=== PATIENT | male | born 1970 | race Caucasian/White ===

== ENCOUNTER 2016-07-17 07:21 | Emergency (ER) | payer MEDICAID ==
[2016-07-17 07:39] VITALS: BP 169/97
--- NOTE | 2016-07-17 08:08 | ED Physician Chart ---
Chief Complaint/HPI - Patient Information Date Seen:: 07/17/16 Time Seen:: 07:56 Chief Complaint:: NAUSEA, VOMITING AND EPIGASTIC PAIN X 3 DAYS History of Present Illness:: THIS 46 YEAR OLD MALE PRESENTS WITH A 3 DAY HISTORY OF NAUSEA AND EPIGASTRIC PAIN ASSOCIATED WITH HEAVY MARIJUANA USE. PT HAS HAD >100 SIMILAR EPISODES OVER THE PAST 6 YEARS. NO HEMATEMESIS OR MELANA. PT RATES THE ABD PAIN 9/ 10. THE QUALITY IS BURNING. HOT SHOWERS HELP RELIEVE THE SYMPTOMS. THE PAIN DOSE NOT RADIATE TO THE BACK. PT IS HEP C POSITIVE DOES NOT HAVE HEP B OR HIV. Allergies:: Allergies Allergy/AdvReac Type Severity Reaction Status Date / Time clindamycin Allergy Verified 02/29/16 15:51 metoclopramide HCl Allergy Verified 02/29/16 15:51 [From Reglan] Penicillins [PCN] Allergy Verified 02/29/16 15:51 prochlorperazine Allergy Verified 02/29/16 15:51 [From Compazine] prochlorperazine edisylate Allergy Verified 02/29/16 15:51 [From Compazine] prochlorperazine maleate Allergy Verified 02/29/16 15:51 [From Compazine] Vitals:: Vital Signs - 8 hr 07/17/16 07/17/16 07:38 07:39 Temp 97.6 F HR 66 RR 15 BP 169/97 169/97 O2 Sat % 99 Review of Systems - Review of Systems General/Constitutional: No fever, No chills, Weakness, No diaphoresis, Loss of appetite Skin: No skin lesions, No rash, No bruising Head: No headache, Light headed Eyes: No loss of vision, No pain, No diplopia ENT: No earache, No sore throat, No tinnitus Neck: No neck pain, No swelling, No stiffness, No mass noted Cardio Vascular: No chest pain, No palpitations, No edema Pulmonary: No SOB, No cough, No wheezing GI: Nausea, No vomiting, No diarrhea, Pain, No hematemesis G/U: No dysuria, No frequency, No hematuria Musculoskeletal: No bone or joint pain, No back pain, No muscle pain Endocrine: No polyuria, No polydipsia Psychiatric: No prior psych history, No suicidal ideation Hematopoietic: No bruising, No lymphadenopathy Allergic/Immuno: No urticaria, No angioedema Neurological: No syncope, No focal symptoms, Weakness, No paresthesia, No headache, No seizure, No confusion Past Medical History - Past Medical History Past Medical History: Other (POSITIVE FOR HEP C) Social History: Non Smoker, No Alcohol, Illicit Drug Use, Single Surgical History: Pacemaker (PACEMAKER IS IN THE RT LATERAL CHEST.), other ( OPEN HEART SURGERY.) Psychiatricy History: None Family Medical History - Family Member Mother History Unknown: Yes Ethnicity: Living Status: Still Living Hx Family Hypertension: Yes Hx Family Diabetes: Yes Other Medical History: hep C Physical Exam - Physical Examination General/Constitutional: Well-developed, well-nourished, Alert, GCS 15, Ambulatory Other Gen/Cons comments:: IN SEVERE DISTRESS FROM HIS COMPLAINED OF SYMPTOMS. Head: Atraumatic Eyes: Lids, conjuctiva normal, PERRL (SCLERA ANICTERIC), EOMI Skin: No rash, No skin lesions, No ecchymosis, No lymphadenopathy ENMT: External ears, nose nl, Nasal exam nl, Lips, teeth, gums nl, Oropharynx nl , Tonsils nl Neck: Nontender, Full ROM w/o pain, No JVD, No nuchal rigidity, No mass Respiratory: Nl effort/Exclusion, Clear to Auscultation, No Wheeze/Rhonchi/Rales Other Respiratory comments:: PACEMAKER IS IN THE RT LATERAL CHEST. Cardio Vascular: No murmur, gallop, rubs, NL S1 S2 (), Carotid/Femoral/Distal pulses equal bilaterally (TACHYCARDIA IN THE 110 RANGE AT THE TIME OF THIS EXAM. ) Other Cardio Vascular comments:: ADEQUATE PULSES IN ALL 4 EXTREMITIES Other GI comments:: ABD SOFT WITH MODERATE EPIGASTRIC TENDERNESS. NO REBOUND OR GUARDING. DECREASED BOWEL SOUNDS. NO HERNIAS. : No CVA tenderness, NL external genitalia Extremities: No tenderness or effusion, Full ROM, normal strength in all extremities, No edema Neuro/Psych: Alert/oriented, Normal sensory exam, Normal motor strength, Mood normal, Normal gait, No focal deficits Misc: Normal back, No paraspinal tenderness Labs/Radiology/EKG Results - Lab Results Results: Laboratory Tests 07/17/16 07/17/16 07/17/16 08:27 08:27 08:27 WBC 11.8 H RBC 5.81 H Hgb 17.1 Hct 50.4 H MCV 86.8 MCH 29.4 MCHC Differential 33.8 RDW 13.1 Plt Count 81 L MPV 9.6 Neutrophils % 68.2 Lymphocytes % 24.3 Monocytes % 5.4 Eosinophils % 2.1 Basophils % 0.0 Sodium 132 L Potassium 3.7 Chloride 99 Carbon Dioxide 27.0 Anion Gap 9.7 BUN 17 Creatinine 1.0 Est GFR ( Amer) > 60.0 Est GFR (Non-Af Amer) > 60.0 BUN/Creatinine Ratio 17.0 Glucose 97 Calcium 10.1 Total Bilirubin 1.0 AST 24 ALT 14 Alkaline Phosphatase 99 Total Protein 7.9 Albumin 4.6 Globulin 3.3 Albumin/Globulin Ratio 1.4 Amylase 43 Lipase 33 LAB INTERPRETATION: the CBC shows a mild elevation of the white count which is consistent with the patient's retching and vomiting. The hemoglobin level is a little bit high which goes along with hemoconcentration from dehydration. All the electrolytes are within the normal parameters except for the sodium which is 132 and of no clinical significance. Liver function tests and pancreatic enzymes were both within normal range. Assessment - Assessment General Assessment: 09 HRS: WAS FEELING MUCH BETTER BUT BOTH PAIN AND NAUSEA RETURNING. WILL ORDER ADDITIONAL MS AND ZOFRAN. CASE SUMMARY: this 46-year-old male presents with a three day history of almost continuous vomiting and epigastric pain. Patient uses marijuana in large amounts and has had similar symptoms close to 100 times over the past six years. On physical examination he has mild tenderness in the epigastric region with no associated rebound or guarding. The liver is not palpable. The patient' s symptoms of dehydration, vomiting and abdominal pain progressed with IV Zofran , IV morphine and 3 L of by the normal saline. At the time of discharge the patient was no longer nauseated and had stopped vomiting. His pain was rated at a 2/10 severity. He was advised to stop smoking marijuana and to seek help our rehab facility. He was further advised to return to the emergency department if his symptoms returned or worsened. Discharged with a prescription for Zofran 8 mg dissolvable discs. Discharged in stable condition. MDM DDX EPIGASTRIC AND VOMITING: NOT HEMORRHAGIC GASTRITIS DUE TO NO HEMATEMESIS or MELENA. NOT Pancreatitis based on normal lipase and amylase levels. NOT Gastroparesis since the patient does not have diabetes or hyperglycemia. ED Septic Shock - . 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 History of hepatitis C. - Patient Disposition Discharge/Transfer:: Home ED Discharge Plan - Patient Disposition Admit/Discharge/Transfer: PT DISCHARGED HOME Condition at Disposition: Stable Prescriptions: Ondansetron HCl [Zofran] 8 mg PO Q6H PRN #0 solution PRN Reason: Nausea Instructions: Cyclic Vomiting Syndrome Accepting Physician: Phillip Doran [Other] - 1-3 Days
[2016-07-17] MEDS ORDERED: Sodium Chloride 0.9% 1,000 ML IV ONE ×2 (08:15→08:17)
[2016-07-17] MEDS ORDERED: Morphine Sulfate 4 mg/mL 1mL Syr IVP ONE ×2 (08:17→09:06)
[2016-07-17 08:38] LABS: % EOSINOPHILS 2.1 % (0.0-5.0); % LYMPHOCYTES 24.3 % (20.0-50.0); % MONOCYTES 5.4 % (2.0-10.0); % NEUTROPHILS 68.2 % (40.0-80.0); HEMATOCRIT 50.4 % (39.0-49.0); HEMOGLOBIN 17.1 gm/dL (13.2-17.3); MEAN CELL VOLUME 86.8 fl (80-99); MEAN CORPUSCULAR HEMOGLOBIN 29.4 pg (26.0-30.0); MEAN CORPUSCULAR HGB CONC 33.8 pg (28.0-36.0); MEAN PLATELET VOLUME 9.6 fl; NEUTROPHILE ABSOLUTE 8.1 Th/cmm (1.8-8.0); PLATELET COUNT 81 Th/cmm (150-400); RED BLOOD COUNT 5.81 Mil/cmm (4.30-5.70); RED CELL DISTRIBUTION WIDTH 13.1 % (11.5-20.0); WHITE BLOOD COUNT 11.8 Th/cmm (4.8-10.8)
[2016-07-17 08:53] LABS: ALB/GLOB RATIO 1.4 (1.0-1.8); ALKALINE PHOSPHATASE 99 U/L (34-104); AMYLASE SERUM 43 U/L (29-103); ANION GAP 9.7 (7.0-16.0); BUN - UREA NITROGEN 17 mg/dL (7-25); CALCIUM SERUM 10.1 mg/dL (8.6-10.3); CHLORIDE 99 mEq/L (98-107); GLUCOSE 97 mg/dL (70-105); LIPASE 33 U/L (11-82); POTASSIUM SERUM 3.7 mEq/L (3.5-5.1); SGOT 24 U/L (13-39); SGPT/ALT 14 U/L (7-52); SODIUM SERUM 132 mEq/L (136-145)
== END 2016-07-17 11:35 | disposition home or self-care (01) ==
LOC: ER 07:21
DX: F12.90 Cannabis use, unspecified, uncomplicated (principal); Z86.19 Personal history of other infectious and parasitic diseases; Z88.1 Allergy status to other antibiotic agents; Z88.0 Allergy status to penicillin; Z88.8 Allergy status to other drugs, medicaments and biological substances
CPT/HCPCS: 99284; 96374; 96375; 96376; 36415; 85025; 82150; 83690; 80053; J2405 ×2; J2270; J7030; Z7502

== ENCOUNTER 2016-07-28 21:00 | Emergency (ER) | payer MEDICAID ==
--- NOTE | 2016-07-28 21:57 | ED Physician Chart ---
Chief Complaint/HPI - Patient Information Date Seen:: 07/28/16 Time Seen:: 21:53 Chief Complaint:: vomiting History of Present Illness:: pt well known to this ed for similar episodes frequently...these are thought to be a cyclical vomiting syndrome possibly related to heavy marijuanna use. pt says he was fine today until he ate a Big Mac which flared up his usual attack of pain and vomiting (non bloody). no fever. pt says the pain is crampy all over and similar to prior episodes. he is sweaty. no other recent illness nor injury. Allergies:: Allergies Allergy/AdvReac Type Severity Reaction Status Date / Time clindamycin Allergy Verified 07/28/16 21:39 metoclopramide HCl Allergy Verified 07/28/16 21:39 [From Reglan] Penicillins [PCN] Allergy Verified 07/28/16 21:39 prochlorperazine Allergy Verified 07/28/16 21:39 [From Compazine] prochlorperazine edisylate Allergy Verified 07/28/16 21:39 [From Compazine] prochlorperazine maleate Allergy Verified 07/28/16 21:39 [From Compazine] Vitals:: Vital Signs - 8 hr 07/28/16 21:15 Temp 98.7 F HR 76 RR 20 BP 175/100 O2 Sat % 99 Historian:: Patient Review of Systems - Review of Systems General/Constitutional: No fever, No chills, No weight loss, No weakness, No diaphoresis, No edema, No loss of appetite Skin: No skin lesions, No rash, No bruising Head: No headache, No light-headedness Eyes: No loss of vision, No pain, No diplopia ENT: No earache, No nasal drainage, No sore throat, No tinnitus Neck: No neck pain, No swelling, No thyromegaly, No stiffness, No mass noted Cardio Vascular: No chest pain, No palpitations, No PND, No orthopnea, No edema Pulmonary: No SOB, No cough, No sputum, No wheezing GI: Nausea, Vomiting, No diarrhea, Pain, No melena, No hematochezia, No constipation, No hematemesis G/U: No dysuria, No frequency, No hematuria Musculoskeletal: No bone or joint pain, No back pain, No muscle pain Endocrine: No polyuria, No polydipsia Psychiatric: No prior psych history, No depression, No anxiety, No suicidal ideation Hematopoietic: No bruising, No lymphadenopathy Allergic/Immuno: No urticaria, No angioedema Neurological: No syncope, No focal symptoms, No weakness, No paresthesia, No headache, No seizure, No dizziness, No confusion, No vertigo Past Medical History - Past Medical History Past Medical History: Other (cyclical vomiting syndrome) Medication: Reviewed Family Medical History - Family Member Mother History Unknown: Yes Ethnicity: Living Status: Still Living Hx Family Hypertension: Yes Hx Family Diabetes: Yes Physical Exam - Physical Examination General/Constitutional: Awake, Well-developed, well-nourished, Alert, No distress, GCS 15, Non-toxic appearing, Ambulatory Head: Atraumatic Eyes: Lids, conjuctiva normal, PERRL, EOMI Skin: Nl inspection, No rash, No skin lesions, No ecchymosis, Well hydrated, No lymphadenopathy ENMT: External ears, nose nl, Nasal exam nl, Lips, teeth, gums nl Neck: Nontender, Full ROM w/o pain, No JVD, No nuchal rigidity, No bruit, No mass, No stridor Respiratory: Nl effort/Exclusion, Clear to Auscultation, No Wheeze/Rhonchi/Rales Other Respiratory comments:: pacer at rt chest...site ok. Cardio Vascular: RRR, No murmur, gallop, rubs, NL S1 S2 GI: No tenderness/rebounding/guarding, No organomegaly, No hernia, Normal BS's, Nondistended, No mass/bruits, No McBurney tenderness Other GI comments:: abd soft. pos nabs. no localizing pain. no mass. legs no edema. : No CVA tenderness Extremities: No tenderness or effusion, Full ROM, normal strength in all extremities, No edema, Normal digits & nails Neuro/Psych: Alert/oriented, DTR's symmetric, Normal sensory exam, Normal motor strength, Judgement/insight normal, Mood normal, Normal gait, No focal deficits Misc: normal gait, Normal back, No paraspinal tenderness ED Septic Shock - . Is Septic Shock (SBP<90, OR Lactate>4 mmol\L) present?: No - <6hrs of presentation: Vital Signs: Vital Signs - 8 hr 07/28/16 21:15 Temp 98.7 F HR 76 RR 20 BP 175/100 O2 Sat % 99 Reassessment (Disposition) - Reassessment Reassessment:: again I have dw pt that his BP is extremely high when he is in pain and I believe he should be on htn med or risks a cva w these episodes. pt again is arguing w me that he thinks I am wrong. pt feels better. no nausea or pain at this time. he has had the same ammt of pain med as he usually gets and I have explained that if his sx worsen or become worse than usual we will do the usual labs and ct scan that we always do. as his pain today has been typical and in no way unusual for him we did not do the studies today...however i explained to pt I am happy to do so if anythig feels amiss. He is to see his pmd tmrw for further advice regarding BP etc... Reassessment Condition:: Improved - Diagnosis Diagnosis:: 1 chronic abdominal pain w vomiting...dxd as cyclical vomiting syndrome in past. 2 untxd htn - Aftercare/Follow up Instructions Aftercare/Follow-Up Instructions:: Counseled pt & family regarding lab results/ diagnosis & need follow up - Patient Disposition Discharge/Transfer:: Home Condition at Disposition:: Improved
--- NOTE | 2016-07-29 00:48 | Admit Criteria Form ---
Admit Criteria Forms - Admit Criteria Diagnosis: ABDOMINAL PAIN Clinical Indications for Admission to Inpatient Care (Place 'X' for any and all applicable criteria): Admission is indicated for ANY ONE of the following(1)(2)(3)(4)(5): [X]I. Inpatient admission required rather than observation care (Also use Abdominal Pain: Observation Care, as appropriate) because of ANY ONE of the following: [ ]a) Severe pain requiring acute inpatient management [X]b) Identification of etiology/finding that requires inpatient care (eg, aortic dissection, free air) [ ]c) Absent bowel sounds with complete ileus(6) [ ]d) Suspected toxic megacolon [ ]e) Severe electrolyte abnormalities requiring inpatient care [ ]f) High fever or infection requiring inpatient admission as indicated by ANY ONE of following(7)(8): [ ] i) Appropriate outpatient or observational care antimicrobial treatment unavailable, not effective, or not feasible [ ] ii) Documented bacteremia [ ] iii) Temperature > 104.9 degrees F (oral) [ ] iv) T >103.1 F (oral) or < 96.8 F(rectal) that does not respond to all emergency treatment measures [ ]g) Signs of intestinal obstruction [B] [ ]h) Hemodynamic instability [ ]i) IV fluid to replace significant ongoing losses (greater than 3 L/m2 per day) (12)(13) [ ]j) Percutaneous or open drainage (eg, abscess, biliary tract ) procedures [ ]k) Parenteral nutrition regimen that must be implemented on inpatient basis [ ]l) Other condition,treatment or monitoring requiring inpatient admission. [ ]II. Peritoneal signs present [ ]III. Surgery needed that cannot be performed on an ambulatory basis. [ ]IV. Evaluation requires patient to not eat or drink for extended period ( eg, more than 24 hours). [ ]V. Contraindications and/or Inappropriate clinical situations for Observational Care in patients with abdominal pain, when ANY ONE of the following is required: [ ]a) Thorough evaluation is required to prevent catastrophic events due to delays in diagnosing (e.g.Mesenteric ischemia) 1,3 [ ]b) Patient with severe pathology or with chronic symptoms unlikely to improve in the ED stay (3) [ ]. General contraindications and/or Inappropriate clinical situations for Observational Care in patients with abdominal pain, when ANY ONE of the following is required: [ ]a) Prediction of prolongation of LOS based on ANY ONE of the following may be considered as a contraindication for observational care 2, 3, 4, 5, 6, 7, 8, 9, 10, 11 [ ]i) Age > 65 yrs. [ ]ii) Patient arriving by ambulance [ ]iii) Patient with high acuity [ ]iv) Patient requiring vital sign monitoring [ ]v) Patient on IV medication [ ]b) Systolic blood pressures 180mmHg 3,12 [ ]c) Patient with altered mental status including delirium and other alteration of consciousness, (3) [ ]d) Patient whose discharge disposition will be to a fdc home or rehabilitation home should not be managed in Emergency Department Observation Unit. CMS rule requires 3 days hospital stay before such placement.3,13 [ ]e) Patient with failure to thrive due to broad array of etiologies 3,16,17 [ ]f) Inability to ambulate 3,14 Extended stay beyond goal length of stay may be needed for(2)(3): [ ]a) Persistent abdominal pain with suspected intra-abdominal process [ ]b) Diagnosed condition requiring continued stay (e.g., pancreatitis, complicated diverticulitis) [ ]c) Surgery (e.g., colectomy) The original [employer] content created by [employer] has been revised. The portions of the content which have been revised are identified through the use of italic text or in bold, and [facility] has neither reviewed nor approved the modified material.All other unmodified content is copyright [employer] [email or web address]. Please see references footnoted in the original [employer] [email or web address] edition 2016
== END 2016-07-29 01:20 | disposition home or self-care (01) ==
LOC: ER 21:00
DX: R11.10 Vomiting, unspecified (principal); R10.9 Unspecified abdominal pain; I10 Essential (primary) hypertension; Z88.1 Allergy status to other antibiotic agents; Z88.0 Allergy status to penicillin; Z88.8 Allergy status to other drugs, medicaments and biological substances
CPT/HCPCS: 99284; 96372 ×3; J2405; J1200; J2270; Z7502; Z7610

== ENCOUNTER 2016-08-23 19:32 | Emergency (ER) | payer MEDICAID ==
--- NOTE | 2016-08-23 19:36 | ED Physician Chart ---
Chief Complaint/HPI - Patient Information Date Seen:: 08/23/16 Time Seen:: 19:36 Chief Complaint:: vomiting History of Present Illness:: 46-year-old male history of cyclic vomiting syndrome and heavy marijuana use, well-known to this emergency department, complains of acute, severe, nausea with associated vomiting 1 hours. Says he "ate something" that set him off. Denies abdominal pain. Allergies:: Allergies Allergy/AdvReac Type Severity Reaction Status Date / Time clindamycin Allergy Verified 07/28/16 21:39 metoclopramide HCl Allergy Verified 07/28/16 21:39 [From Reglan] Penicillins [PCN] Allergy Verified 07/28/16 21:39 prochlorperazine Allergy Verified 07/28/16 21:39 [From Compazine] prochlorperazine edisylate Allergy Verified 07/28/16 21:39 [From Compazine] prochlorperazine maleate Allergy Verified 07/28/16 21:39 [From Compazine] Historian:: Patient Review:: Nurse's Note Reviewed Review of Systems - Review of Systems Other: Complete system review otherwise unremarkable except as noted in HPI. Past Medical History - Past Medical History Past Medical History: Other (cyclic vomiting syndrome) Family History: None Social History: Non Smoker, No Alcohol, Illicit Drug Use, Employed Surgical History: None Psychiatricy History: None Medication: None Family Medical History - Family Member Mother History Unknown: Yes Ethnicity: Living Status: Still Living Hx Family Hypertension: Yes Hx Family Diabetes: Yes Physical Exam - Physical Examination Other:: INITIAL VITAL SIGNS: Reviewed by me GENERAL: Alert and interactive. No acute distress HEAD: Head is normocephalic and atraumatic EYES: EOMI. . No scleral icterus. No conjunctival injection ENT: Moist mucous membranes. NECK: Supple. No masses. Full range of motion RESPIRATORY: No tachypnea. Clear breath sounds bilaterally. No wheezing, rales, or rhonchi CV: Regular rate and rhythm. No murmurs, rubs, or gallops ABDOMEN: Soft, non-distended, non-tender. No guarding. No rebound. No masses. EXTREMITIES: No deformity. No cyanosis. No edema. SKIN: Warm and dry. No obvious rashes. NEUROLOGIC: Alert and oriented. Face is symmetric. Speech is normal. Moves all extremities equally. Motor and sensory distally intact. ED Septic Shock - . Is Septic Shock (SBP<90, OR Lactate>4 mmol\\L) present?: No Reassessment (Disposition) - Reassessment Reassessment:: The patient's blood pressure was elevated (>120/80) but appears stable without evidence of hypertensive emergency or urgency. The patient was counseled about the risks hypertension urged to pursue outpatient monitoring and therapy within a week with her primary care physician. Patient has similar symptoms to multiple past episodes of cyclic vomiting. Denies abdominal pain. At this point we are holding off any labs since there is no apparent change in his symptoms. Patient is argumentative with myself and with nursing. I personally saw him in the lobby and assessed him. IV analgesics and antiemetics were ordered. Also received IV fluids. Symptoms improved. Patient discharged. Follow-up PCP. Stop using marijuana. Return to ER precautions given. Reassessment Condition:: Improved - Diagnosis Diagnosis:: Cyclic vomiting syndrome Elevated blood pressure without the diagnosis of hypertension - Aftercare/Follow up Instructions Aftercare/Follow-Up Instructions:: Counseled pt regarding lab results/diagnosis & need follow up, Refer to Discharge Instructions Medication Prescribed:: Cyclic vomiting syndrome - Patient Disposition Discharge/Transfer:: Home Time:: 20:26 Condition at Disposition:: Improved ED Discharge Plan - Patient Disposition Admit/Discharge/Transfer: PT DISCHARGED HOME Condition at Disposition: Improved Instructions: Cyclic Vomiting Syndrome Additional Instructions: Follow-up with your primary care physician. Stop smoking marijuana.
[2016-08-23] MEDS ORDERED: Morphine Sulfate 4 mg/mL 1mL Syr IVP STA (19:44)
[2016-08-23] MEDS ORDERED: Sodium Chloride 0.9% 1,000 ML IV ONE (19:44)
== END 2016-08-23 21:10 | disposition home or self-care (01) ==
LOC: ER 19:32
DX: G43.A0 Cyclical vomiting, in migraine, not intractable (principal); R03.0 Elevated blood-pressure reading, without diagnosis of hypertension; Z88.1 Allergy status to other antibiotic agents; Z88.0 Allergy status to penicillin
CPT/HCPCS: 99284; 96374; 96375; J2405; J1200; J2270; J7030; Z7502

== ENCOUNTER 2016-08-24 12:39 | Emergency (ER) | payer MEDICAID ==
--- NOTE | 2016-08-24 13:14 | ED Physician Chart ---
Chief Complaint/HPI - Patient Information Date Seen:: 08/24/16 Time Seen:: 01:00 Chief Complaint:: Vomiting History of Present Illness:: Onset x 2 days of N/V x 15 with intermittent, crampy epigastric abdominal pain; denies A/D/C, melena, hematemesis, hematochezia, urinary s/s, C/P, SOB, fever, chills; pt is eating regular diet and is urinating well; pt last urinated one hour [employer] Allergies:: Allergies Allergy/AdvReac Type Severity Reaction Status Date / Time clindamycin Allergy Verified 08/23/16 20:15 metoclopramide HCl Allergy Verified 08/23/16 20:15 [From Reglan] Penicillins [PCN] Allergy Verified 08/23/16 20:15 prochlorperazine Allergy Verified 08/23/16 20:15 [From Compazine] prochlorperazine edisylate Allergy Verified 08/23/16 20:15 [From Compazine] prochlorperazine maleate Allergy Verified 08/23/16 20:15 [From Compazine] Vitals:: Vital Signs - 8 hr 08/24/16 12:58 Temp 96.2 F HR 72 RR 6 BP 190/108 O2 Sat % 100 Historian:: Patient Review:: Nurse's Note Reviewed, Old Chart Reviewed Review of Systems - Review of Systems General/Constitutional: No fever, No chills, No weight loss, No weakness, No diaphoresis, No edema, No loss of appetite Skin: No skin lesions, No rash, No bruising Head: No headache, No light-headedness Eyes: No loss of vision, No pain, No diplopia ENT: No earache, No nasal drainage, No sore throat, No tinnitus Neck: No neck pain, No swelling, No thyromegaly, No stiffness, No mass noted Cardio Vascular: No chest pain, No palpitations, No PND, No orthopnea, No edema Pulmonary: No SOB, No cough, No sputum, No wheezing GI: Nausea, No nausea, Vomiting, No vomiting, No diarrhea, Pain, No pain, No melena, No hematochezia, No constipation, No hematemesis G/U: No dysuria, No frequency, No hematuria Musculoskeletal: No bone or joint pain, No back pain, No muscle pain Endocrine: No polyuria, No polydipsia Psychiatric: No prior psych history, No depression, No anxiety, No suicidal ideation Hematopoietic: No bruising, No lymphadenopathy Allergic/Immuno: No urticaria, No angioedema Neurological: No syncope, No focal symptoms, No weakness, No paresthesia, No headache, No seizure, No dizziness, No confusion, No vertigo Past Medical History - Past Medical History Past Medical History: PUD/GERD, Other (CHD; Hepatitis C) Family History: HTN Social History: Smoker, Alcohol, Illicit Drug Use, Single Surgical History: other (Heart Surgery at 7Y/O) Psychiatricy History: None Family Medical History - Family Member Mother History Unknown: Yes Ethnicity: Living Status: Still Living Hx Family Hypertension: Yes Hx Family Diabetes: Yes Physical Exam - Physical Examination General/Constitutional: Awake, Well-developed, well-nourished, Alert, No distress, GCS 15, Non-toxic appearing, Ambulatory Head: Atraumatic Eyes: Lids, conjuctiva normal, PERRL, EOMI Skin: Nl inspection, No rash, No skin lesions, No ecchymosis, Well hydrated, No lymphadenopathy ENMT: External ears, nose nl, Nasal exam nl, Lips, teeth, gums nl Neck: Nontender, Full ROM w/o pain, No JVD, No nuchal rigidity, No bruit, No mass, No stridor Respiratory: Nl effort/Exclusion, Clear to Auscultation, No Wheeze/Rhonchi/Rales Cardio Vascular: RRR, No murmur, gallop, rubs, NL S1 S2 GI: No tenderness/rebounding/guarding, No organomegaly, No hernia, Normal BS's, Nondistended, No mass/bruits, No McBurney tenderness : No CVA tenderness Extremities: No tenderness or effusion, Full ROM, normal strength in all extremities, No edema, Normal digits & nails Neuro/Psych: Alert/oriented, DTR's symmetric, Normal sensory exam, Normal motor strength, Judgement/insight normal, Mood normal, Normal gait, No focal deficits Misc: normal gait, Normal back, No paraspinal tenderness ED Septic Shock - . Is Septic Shock (SBP<90, OR Lactate>4 mmol\L) present?: No - <6hrs of presentation: Vital Signs: Vital Signs - 8 hr 08/24/16 12:58 Temp 96.2 F HR 72 RR 6 BP 190/108 O2 Sat % 100 Assessment of Lungs: Lung CTA bilateral, Ventilator, Decreased BS, Rhonchi, No Rhonchi, Rales, No Rales, Wheezing, No Wheezing, Stridor, No Stridor, Other, Documented in PE Assessment of Heart: RRR, Thrill, No thrill, Gallops, No Gallops, S3, S4, Rub, No Rub, Murmur, No Murmur, Other, Documented in PE EKG Interpretation: NSR, ST elevation, No ST elevation, ST depression, No ST depression (nonspecific ST-T changes; Pacemaker Rhythm; no acute changes), PVCs , Bigeminy, Trigeminy, No Ectopy, Tachy, Nikita, SVT, A-Flutter, A-Fib, AV Block , Other, Documented in Result Capillary refill evaluation: Capillary refill < 2 secs, Capillary refill > 2 secs, Other, Documented in PE Skin Exam: Warm, Dry, Good Turgur, Poor Turgor, Pallor, No Pallor, Diaphoretic, No Diaphoresis, Mottled, No Mottling, Cyanotic, Edema, No Edema, Erythema, No Erythema, Other, Documented in PE Reassessment (Disposition) - Reassessment Reassessment Condition:: Improved - Diagnosis Diagnosis:: Gastroenteritis; Hypertension; Vomiting-Resolved - Aftercare/Follow up Instructions Aftercare/Follow-Up Instructions:: Counseled pt regarding lab results/diagnosis & need follow up, Refer to Discharge Instructions, Counseled pt & family regarding lab results/diagnosis & need follow up Medication Prescribed:: Rx: Levaquin 500mg po qd x 10 days; Zofran 4 mg po tid prn N/V - Patient Disposition Discharge/Transfer:: Home (ACIs given for all Dx; 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
[2016-08-24] MEDS ORDERED: Morphine Sulfate 2 mg/mL 1mL Syr IVP ONE (13:18)
[2016-08-24] MEDS ORDERED: Sodium Chloride 0.9% 1,000 ML IV ONE (13:18)
[2016-08-24] MEDS ORDERED: Morphine Sulfate 2 mg/mL 1mL Syr ONE (13:28)
[2016-08-24 13:33] LABS: % EOSINOPHILS 0.7 % (0.0-5.0); % LYMPHOCYTES 13.5 % (20.0-50.0); % MONOCYTES 2.5 % (2.0-10.0); % NEUTROPHILS 83.3 % (40.0-80.0); MEAN CELL VOLUME 85.4 fl (80-99); MEAN CORPUSCULAR HEMOGLOBIN 29.1 pg (26.0-30.0); MEAN CORPUSCULAR HGB CONC 34.1 pg (28.0-36.0); NEUTROPHILE ABSOLUTE 11.5 Th/cmm (1.8-8.0); PLATELET COUNT 89 Th/cmm (150-400); RED BLOOD COUNT 5.07 Mil/cmm (4.30-5.70); RED CELL DISTRIBUTION WIDTH 13.7 % (11.5-20.0)
[2016-08-24 13:40] LABS: HEMATOCRIT 43.3 % (39.0-49.0); HEMOGLOBIN 14.7 gm/dL (13.2-17.3); WHITE BLOOD COUNT 13.7 Th/cmm (4.8-10.8)
[2016-08-24 13:52] LABS: AMYLASE SERUM 35 U/L (29-103); ANION GAP 13.7 (7.0-16.0); BUN - UREA NITROGEN 9 mg/dL (7-25); CALCIUM SERUM 10.1 mg/dL (8.6-10.3); CARBON DIOXIDE 24.8 mEq/L (21.0-31.0); CHLORIDE 103 mEq/L (98-107); CREATININE - SERUM 0.9 mg/dL (0.7-1.3); GLUCOSE 107 mg/dL (70-105); LIPASE 8 U/L (11-82); POTASSIUM SERUM 3.5 mEq/L (3.5-5.1); SODIUM SERUM 138 mEq/L (136-145)
[2016-08-24 15:11] LABS: URINE BILIRUBIN NEGATIVE (NEGATIVE); URINE COLOR YELLOW; URINE GLUCOSE (UA) NEGATIVE (NEGATIVE)
[2016-08-24 15:12] LABS: URINE BLOOD TRACE (NEGATIVE); URINE KETONE 40 mg/dL (NEGATIVE); URINE PROTEIN TRACE mg/dL (NEGATIVE); URINE UROBILINOGEN 0.2 E.U./dL (0.2 - 1.0)
[2016-08-24] MEDS ORDERED: Nitroglycerin 0.1 mg/hr Tdm TD ONE (15:47)
[2016-08-24] MEDS ORDERED: NITROGLYCERIN OINT 2% 1 INCH PACKET TP ONE (16:04)
[2016-08-24] MEDS ORDERED: NITROGLYCERIN OINT 2% 1 INCH PACKET TP STA (16:06)
[2016-08-24] MEDS ORDERED: Levofloxacin 500mg/100mL 500 MG/100 ML BAG IV ONE ×2 (16:21→16:25)
[2016-08-24 16:44] LABS: URINE BACTERIA NONE SEEN /hpf (NONE SEEN); URINE EPITHELIAL CELLS NONE SEEN /lpf (FEW); URINE RBC NONE SEEN /hpf (0-5); URINE WBC NONE SEEN /hpf (0-5)
--- NOTE | 2016-08-25 09:24 | Diagnostic Imaging Report ---
CHEST X-RAY: AP view INDICATION: Vomiting, shortness of breath COMPARISON: Chest x-ray 07/25/2014 FINDINGS: Right chest wall pacer apparatus is stable. No focal consolidation or effusions. Heart size is normal. The osseous structures are intact. IMPRESSION: No focal airspace consolidation identified Pacemaker noted.
== END 2016-08-24 16:50 | disposition home or self-care (01) ==
LOC: ER 12:39
DX: K52.9 Noninfective gastroenteritis and colitis, unspecified (principal); I10 Essential (primary) hypertension; K21.9 Gastro-esophageal reflux disease without esophagitis; I50.9 Heart failure, unspecified; F17.200 Nicotine dependence, unspecified, uncomplicated; Z98.890 Other specified postprocedural states; Z86.19 Personal history of other infectious and parasitic diseases; Z88.1 Allergy status to other antibiotic agents; Z88.0 Allergy status to penicillin; Z88.8 Allergy status to other drugs, medicaments and biological substances
CPT/HCPCS: 99285; 96365; 96375; 96376; 93005; 71010; 84484; 36415; 83605; 85025; 81001; 82150; 83690; 80048; 87040 ×2; J2270; J2405 ×2; J1956; J7030; Z7610

== ENCOUNTER 2016-08-28 16:01 | Emergency (ER) | payer MEDICAID ==
[2016-08-28 16:18] VITALS: BP 119/56
[2016-08-28] MEDS ORDERED: Sodium Chloride 0.9% 2,000 ML IV ONE (16:34)
[2016-08-28 17:07] LABS: % EOSINOPHILS 1.2 % (0.0-5.0); % LYMPHOCYTES 18.4 % (20.0-50.0); % MONOCYTES 5.7 % (2.0-10.0); % NEUTROPHILS 74.7 % (40.0-80.0); HEMATOCRIT 44.2 % (39.0-49.0); HEMOGLOBIN 14.9 gm/dL (13.2-17.3); MEAN CELL VOLUME 87.2 fl (80-99); MEAN CORPUSCULAR HEMOGLOBIN 29.4 pg (26.0-30.0); MEAN CORPUSCULAR HGB CONC 33.7 pg (28.0-36.0); MEAN PLATELET VOLUME 11.7 fl; PLATELET COUNT 90 Th/cmm (150-400); RED BLOOD COUNT 5.06 Mil/cmm (4.30-5.70); RED CELL DISTRIBUTION WIDTH 13.6 % (11.5-20.0)
[2016-08-28 17:09] LABS: WHITE BLOOD COUNT 10.7 Th/cmm (4.8-10.8)
[2016-08-28 17:10] LABS: ALB/GLOB RATIO 1.9 (1.0-1.8); ALKALINE PHOSPHATASE 93 U/L (34-104); AMYLASE SERUM 48 U/L (29-103); ANION GAP 10.6 (7.0-16.0); BILIRUBIN,TOTAL 1.2 mg/dL (0.3-1.0); BUN - UREA NITROGEN 12 mg/dL (7-25); BUN/CREATININE RATIO 13.3; CARBON DIOXIDE 26.9 mEq/L (21.0-31.0); CHLORIDE 104 mEq/L (98-107); CREATININE - SERUM 0.9 mg/dL (0.7-1.3); GLUCOSE 96 mg/dL (70-105); LIPASE 37 U/L (11-82); POTASSIUM SERUM 3.5 mEq/L (3.5-5.1); SGOT 18 U/L (13-39); SGPT/ALT 14 U/L (7-52); SODIUM SERUM 138 mEq/L (136-145)
--- NOTE | 2016-08-28 19:04 | ED Physician Chart ---
Chief Complaint/HPI - Patient Information Date Seen:: 08/28/16 Time Seen:: 16:30 Chief Complaint:: VOMITING, DIARRHEA AND EPIGASTRIC PAIN X 1 WEEK. History of Present Illness:: This 46 year old male presents with a 1 week history of nausea, vomiting, diarrhea and epigastric pain. This is the patient's third visit to the ED this week. The patient has a chronic record of similar symptoms brought on by heavy use of Marijuana. He has had no fever but has experience chills and cold sweats over the past 2 days. He rates the severity of he pain as 8/10. The character of the pain was cramping and there was no radiation of the pain into the back or chest. There were no exacerbating or relieving factors. Allergies:: Allergies Allergy/AdvReac Type Severity Reaction Status Date / Time clindamycin Allergy Verified 08/23/16 20:15 metoclopramide HCl Allergy Verified 08/23/16 20:15 [From Reglan] Penicillins [PCN] Allergy Verified 08/23/16 20:15 prochlorperazine Allergy Verified 08/23/16 20:15 [From Compazine] prochlorperazine edisylate Allergy Verified 08/23/16 20:15 [From Compazine] prochlorperazine maleate Allergy Verified 08/23/16 20:15 [From Compazine] Vitals:: Vital Signs - 8 hr 08/28/16 08/28/16 08/28/16 16:18 16:19 17:25 Temp 98.1 F HR 77 68 RR 15 16 BP 119/56 119/56 137/67 O2 Sat % 99 08/28/16 18:55 Temp HR 73 RR 16 BP 137/70 O2 Sat % 100 Past Medical History - Past Medical History Past Medical History: Other ( The patient has a prior history of hepatitis C. He also underwent cardiac surgery for repair of the tricuspid and mitral valves when he was [age] years old. He said to pacemakers and one of those became infected a number of years ago.) Social History: Non Smoker, No Alcohol ( The), Illicit Drug Use Employment:: knee illicit drug use was smoking marijuana. Surgical History: Pacemaker Family Medical History - Family Member Mother History Unknown: Yes Ethnicity: Living Status: Still Living Hx Family Cancer: No Hx Family Congestive Heart Failure: No Hx Family Hypertension: Yes Hx Family Stroke: No Hx Family Diabetes: Yes Hx Family Seizures: No Hx Family Dementia: No Hx Family HIV: No Hx Family COPD: No Hx Family Hepatitis: No Hx Family Psychiatric Problems: No Hx Family Tuberculosis: No Physical Exam - Physical Examination General/Constitutional: Awake, Well-developed, well-nourished, Alert, Ambulatory Other Gen/Cons comments:: Patient in moderate to severe discomfort and appears very pale and acutely ill. Head: Atraumatic Eyes: Lids, conjuctiva normal, PERRL, EOMI Other Eyes comments:: No nystagmus and the sclera were not jaundiced. Skin: No rash, No skin lesions Other Skin comments:: The skin is cool and moist. ENMT: External ears, nose nl, Nasal exam nl, Lips, teeth, gums nl, Oropharynx nl , Tonsils nl Neck: Nontender, Full ROM w/o pain, No JVD, No nuchal rigidity, No mass Respiratory: Nl effort/Exclusion, Clear to Auscultation, No Wheeze/Rhonchi/Rales Other Respiratory comments:: There is a implanted pacemaker in the upper right chest wall below the clavicle. There is a pigmented discoloration of the skin or the prior pacemaker had been in the left upper chest. Cardio Vascular: RRR, No murmur, gallop, rubs, NL S1 S2 Other Cardio Vascular comments:: Adequate pulses in all four extremities. GI: No organomegaly, Normal BS's, Nondistended ( There is mild to moderate tenderness on palpation in the epigastric region. There was no associated rebound or guarding. The patient has a small incisional hernia in the upper abdomen midline. He states that the hernia frequently pops in and out but is always been reducible.) : No CVA tenderness, NL external genitalia Extremities: No tenderness or effusion, Full ROM, normal strength in all extremities, No edema Neuro/Psych: Alert/oriented, Normal sensory exam ( Sensory examination is intact to light touch in all four extremities.), Judgement/insight normal, Mood normal, No focal deficits Misc: Normal back, No paraspinal tenderness Labs/Radiology/EKG Results - Lab Results Results: Laboratory Tests 08/28/16 08/28/16 08/28/16 16:40 16:40 16:40 WBC 10.7 D RBC 5.06 Hgb 14.9 Hct 44.2 MCV 87.2 MCH 29.4 MCHC Differential 33.7 RDW 13.6 Plt Count 90 L MPV 11.7 Neutrophils % 74.7 Lymphocytes % 18.4 L Monocytes % 5.7 Eosinophils % 1.2 Basophils % 0.0 Sodium 138 Potassium 3.5 Chloride 104 Carbon Dioxide 26.9 Anion Gap 10.6 BUN 12 Creatinine 0.9 Est GFR ( Amer) > 60.0 Est GFR (Non-Af Amer) > 60.0 BUN/Creatinine Ratio 13.3 Glucose 96 Whole Bld Lactic Acid 1.43 Calcium 10.0 Total Bilirubin 1.2 H AST 18 ALT 14 Alkaline Phosphatase 93 Total Protein 7.4 Albumin 4.8 Globulin 2.6 Albumin/Globulin Ratio 1.9 H Amylase 48 Lipase 37 There is no leukocytosis but there is a left shift of the white count. There is no anemia but the platelet count was reduced to 90,000. The electrolytes were all within the normal range. Renal function was normal. The bilirubin was mildly elevated at 1.2. The remaining liver function tests were all within normal parameters. Both the amylase and lipase were within normal parameters. The lactic acid was within the normal range. Assessment - Assessment General Assessment: CASE SUMMARY: this 46-year-old male presents to the emergency department with epigastric, vomiting and diarrhea. The patient has had multiple similar prior episodes which have been diagnosed as cyclic vomiting, probably secondary to marijuana use. The patient's symptoms were addressed using IV normal saline, IV Zofran and IV morphine. At the time of discharge the patient was completely pain -free and no longer having any nausea or vomiting. He was discharged with a prescription for Zofran, 8 mg dissolving discs for any further nausea or vomiting. He was further advised to abstain from using marijuana. Discharged in stable condition. MDM DDX: EPIGASTRIC PAIN, VOMITING, DIARRHEA: NOT pancreatitis, based on normal lipase and amylase levels. NOT based on history and exam NOT Acute appendicitis based on the patient's history and physical exam. N ED Septic Shock - . Is Septic Shock (SBP<90, OR Lactate>4 mmol\L) present?: No - <6hrs of presentation: Vital Signs: Vital Signs - 8 hr 08/28/16 08/28/16 08/28/16 16:18 16:19 17:25 Temp 98.1 F HR 77 68 RR 15 16 BP 119/56 119/56 137/67 O2 Sat % 99 03// 18:55 Temp HR 73 RR 16 BP 137/70 O2 Sat % 100 Reassessment (Disposition) - Reassessment Reassessment Condition:: Improved - Diagnosis Diagnosis:: CYCLIC VOMITING, MARIJUANA ABUSE. History of hepatitis C. - Aftercare/Follow up Instructions Medication Prescribed:: Zofran 8 mg dissolving discs, dispense 10, take one sublingually 26H for further nausea or vomiting. U - Patient Disposition Discharge/Transfer:: Home ED Discharge Plan - Patient Disposition Admit/Discharge/Transfer: PT DISCHARGED HOME Condition at Disposition: Stable Prescriptions: Ondansetron [Zofran Odt] 8 mg PO Q6H PRN #0 odt PRN Reason: nausea and vomiting Instructions: Cyclic Vomiting Syndrome Accepting Physician: Andreea Fisher MD [Other] - 1-3 Days
[2016-08-28 19:11] LABS: URINE BILIRUBIN NEGATIVE (NEGATIVE); URINE BLOOD TRACE (NEGATIVE); URINE COLOR YELLOW; URINE GLUCOSE (UA) NEGATIVE (NEGATIVE); URINE KETONE NEGATIVE (NEGATIVE)
[2016-08-28 19:12] LABS: URINE AMORPHOUS SEDIMENT FEW URATES (NONE SEEN); URINE BACTERIA FEW /hpf (NONE SEEN); URINE EPITHELIAL CELLS RARE /lpf (FEW); URINE PH 7.5; URINE PROTEIN NEGATIVE (NEGATIVE); URINE RBC 0-2 /hpf (0-5); URINE UROBILINOGEN 0.2 E.U./dL (0.2 - 1.0); URINE WBC 0-2 /hpf (0-5)
== END 2016-08-28 19:00 | disposition home or self-care (01) ==
LOC: ER 16:01
DX: G43.A0 Cyclical vomiting, in migraine, not intractable (principal); F12.10 Cannabis abuse, uncomplicated; Z86.19 Personal history of other infectious and parasitic diseases; Z95.0 Presence of cardiac pacemaker; Z88.1 Allergy status to other antibiotic agents; Z88.0 Allergy status to penicillin
CPT/HCPCS: 99284; 96374; 96375; 96376; 36415; 83605; 85025; 81001; 82150; 83690; 80053; 87040 ×2; J2405 ×2; J2270; J7030; Z7502

== ENCOUNTER 2016-10-14 10:38 | Emergency (ER) | payer MEDICAID ==
[2016-10-14] MEDS ORDERED: Sodium Chloride 0.9% 1,000 ML IV ONE (11:00)
--- NOTE | 2016-10-14 11:09 | ED Physician Chart ---
Chief Complaint/HPI - Patient Information Date Seen:: 10/14/16 Time Seen:: 11:00 Chief Complaint:: vomiting and abdominal pain History of Present Illness:: Patient this morning at about 7:00 developed epigastric pain and vomiting. He vomited about 20 times. He's had no diarrhea. Patient had episodes of similar pain and vomiting for the last 15-20 years. His last episode was about 2 months ago. Allergies:: Allergies Allergy/AdvReac Type Severity Reaction Status Date / Time clindamycin Allergy Verified 10/14/16 10:47 metoclopramide HCl Allergy Verified 10/14/16 10:47 [From Reglan] Penicillins [PCN] Allergy Verified 10/14/16 10:47 prochlorperazine Allergy Verified 10/14/16 10:47 [From Compazine] prochlorperazine edisylate Allergy Verified 10/14/16 10:47 [From Compazine] prochlorperazine maleate Allergy Verified 10/14/16 10:47 [From Compazine] Vitals:: Vital Signs - 8 hr 10/14/16 10:38 Temp 97.9 F HR 73 RR 16 BP 177/102 O2 Sat % 98 Historian:: Patient Review:: Nurse's Note Reviewed Review of Systems - Review of Systems General/Constitutional: No fever, No chills Skin: No skin lesions Head: No headache Eyes: No loss of vision ENT: No earache Neck: No neck pain, No swelling Cardio Vascular: No chest pain, No palpitations Pulmonary: No SOB, Cough GI: Vomiting, Pain Musculoskeletal: No bone or joint pain, No back pain, No muscle pain Endocrine: No polyuria, Polydipsia Psychiatric: No prior psych history Hematopoietic: No bruising Allergic/Immuno: No urticaria Neurological: No syncope Past Medical History - Past Medical History Past Medical History: Other (congenital heart disease; gastritis) Family History: None Social History: Non Smoker, No Alcohol Surgical History: other (pacemaker insertion with 4 revisions; open heart surgery) Psychiatricy History: None Medication: Reviewed Family Medical History - Family Member Mother History Unknown: Yes Ethnicity: Living Status: Still Living Hx Family Cancer: No Hx Family Congestive Heart Failure: No Hx Family Hypertension: Yes Hx Family Stroke: No Hx Family Diabetes: Yes Hx Family Seizures: No Hx Family Dementia: No Hx Family HIV: No Hx Family COPD: No Hx Family Hepatitis: No Hx Family Psychiatric Problems: No Hx Family Tuberculosis: No Assessment - Assessment General Assessment: At 1310 patient was noted to be resting comfortably apparently sleeping and obviously not vomiting anymore. Patient will be discharged and instructed to avoid any potentially dangerous activity like driving for the next 4 hours. ED Septic Shock - . Is Septic Shock (SBP<90, OR Lactate>4 mmol\L) present?: No - <6hrs of presentation: Vital Signs: Vital Signs - 8 hr 10/14/16 10:38 Temp 97.9 F HR 73 RR 16 BP 177/102 O2 Sat % 98 Reassessment (Disposition) - Reassessment Reassessment Condition:: Improved - Diagnosis Diagnosis:: Gastritis; intractable vomiting - Aftercare/Follow up Instructions Aftercare/Follow-Up Instructions:: Refer to Discharge Instructions Medication Prescribed:: Zofran 4 mg oral dissolving tablets #10 to take one every 4 hours as necessary for nausea and vomiting. - Patient Disposition Discharge/Transfer:: Home Condition at Disposition:: Stable, Improved
[2016-10-14 11:17] LABS: % BASOPHILS 4.1 % (0.0-2.0); % LYMPHOCYTES 18.5 % (20.0-50.0); % MONOCYTES 1.1 % (2.0-10.0); % NEUTROPHILS 75.3 % (40.0-80.0); HEMATOCRIT 45.6 % (39.0-49.0); HEMOGLOBIN 15.5 gm/dL (13.2-17.3); MEAN CELL VOLUME 86.3 fl (80-99); MEAN CORPUSCULAR HEMOGLOBIN 29.3 pg (26.0-30.0); MEAN CORPUSCULAR HGB CONC 33.9 pg (28.0-36.0); MEAN PLATELET VOLUME 10.4 fl; NEUTROPHILE ABSOLUTE 8.7 Th/cmm (1.8-8.0); PLATELET COUNT 96 Th/cmm (150-400); RED BLOOD COUNT 5.29 Mil/cmm (4.30-5.70); RED CELL DISTRIBUTION WIDTH 13.4 % (11.5-20.0); WHITE BLOOD COUNT 11.5 Th/cmm (4.8-10.8)
[2016-10-14 11:37] LABS: ANION GAP 12.5 (7.0-16.0); BUN - UREA NITROGEN 9 mg/dL (7-25); BUN/CREATININE RATIO 11.3; CARBON DIOXIDE 25.9 mEq/L (21.0-31.0); CHLORIDE 104 mEq/L (98-107); CREATININE - SERUM 0.8 mg/dL (0.7-1.3); GLUCOSE 104 mg/dL (70-105); LIPASE 19 U/L (11-82); POTASSIUM SERUM 3.4 mEq/L (3.5-5.1); SODIUM SERUM 139 mEq/L (136-145)
[2016-10-14] MEDS ORDERED: HYDROmorphone 1 mg/mL 1mL Syr IVP STA (11:54)
[2016-10-14] MEDS ORDERED: HYDROmorphone 1 mg/mL 1mL Syr ONE (12:32)
== END 2016-10-14 14:00 | disposition home or self-care (01) ==
LOC: ER 10:38
DX: K29.70 Gastritis, unspecified, without bleeding (principal); Z88.1 Allergy status to other antibiotic agents; Z88.0 Allergy status to penicillin
CPT/HCPCS: 99284; 96374; 96375; 36415; 85025; 83690; 80048; J2405; J1170; J7030; Z7502

== ENCOUNTER 2016-10-16 15:24 | Inpatient (IN) | payer MEDICAID ==
--- NOTE | 2016-10-16 15:45 | ED Physician Chart ---
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 Allergies:: Allergies Allergy/AdvReac Type Severity Reaction Status Date / Time clindamycin Allergy Verified 10/14/16 10:47 metoclopramide HCl Allergy Verified 10/14/16 10:47 [From Reglan] Penicillins [PCN] Allergy Verified 10/14/16 10:47 prochlorperazine Allergy Verified 10/14/16 10:47 [From Compazine] prochlorperazine edisylate Allergy Verified 10/14/16 10:47 [From Compazine] prochlorperazine maleate Allergy Verified 10/14/16 10:47 [From Compazine] Historian:: Patient, Family Member Review:: Nurse's Note Reviewed, Old Chart Reviewed Review of Systems - Review of Systems General/Constitutional: Fever, Chills, No weight loss, Weakness, No diaphoresis , No edema, No loss of appetite Skin: No skin lesions, No rash, No bruising Head: Headache, No light-headedness Eyes: No loss of vision, No pain, No diplopia ENT: No earache, No nasal drainage, No sore throat, No tinnitus Neck: No neck pain, No swelling, No thyromegaly, No stiffness, No mass noted Cardio Vascular: Chest pain, Palpitations, No PND, No orthopnea, No edema Pulmonary: SOB, Cough, No sputum, No wheezing GI: Nausea, Vomiting, Diarrhea, Pain, No melena, No hematochezia, No constipation, No hematemesis G/U: No dysuria, No frequency, No hematuria Musculoskeletal: No bone or joint pain, No back pain, No muscle pain Endocrine: No polyuria, No polydipsia Psychiatric: Prior psych history, Depression, Anxiety, No suicidal ideation Hematopoietic: No bruising, No lymphadenopathy Allergic/Immuno: No urticaria, No angioedema Neurological: No syncope, No focal symptoms, No weakness, No paresthesia, No headache, No seizure, No dizziness, No confusion, No vertigo Past Medical History - Past Medical History Past Medical History: HTN, CAD, Dyslipidemia, PUD/GERD Family History: Heart disease, Diabetes Melitus, HTN Social History: Smoker, Alcohol, Illicit Drug Use, Surgical History: Hernia, other (Congenital Heart Surgery at 7 y/o) Psychiatricy History: Depression, Bipolar Medication: Reviewed Family Medical History - Family Member Mother History Unknown: Yes Ethnicity: Living Status: Still Living Hx Family Cancer: No Hx Family Congestive Heart Failure: No Hx Family Hypertension: Yes Hx Family Stroke: No Hx Family Diabetes: Yes Hx Family Seizures: No Hx Family Dementia: No Hx Family HIV: No Hx Family COPD: No Hx Family Hepatitis: No Hx Family Psychiatric Problems: No Hx Family Tuberculosis: No Physical Exam - Physical Examination General/Constitutional: Awake, Well-developed, well-nourished, Alert, No distress, GCS 15, Non-toxic appearing, Ambulatory Head: Atraumatic Eyes: Lids, conjuctiva normal, PERRL, EOMI Skin: Nl inspection, No rash, No skin lesions, No ecchymosis, Well hydrated, No lymphadenopathy ENMT: External ears, nose nl, Nasal exam nl, Lips, teeth, gums nl Neck: Nontender, Full ROM w/o pain, No JVD, No nuchal rigidity, No bruit, No mass, No stridor Respiratory: Nl effort/Exclusion, Clear to Auscultation, No Wheeze/Rhonchi/Rales Cardio Vascular: RRR, No murmur, gallop, rubs, NL S1 S2 GI: No tenderness/rebounding/guarding, No organomegaly, No hernia, Normal BS's, Nondistended, No mass/bruits, No McBurney tenderness : No CVA tenderness Extremities: No tenderness or effusion, Full ROM, normal strength in all extremities, No edema, Normal digits & nails Neuro/Psych: Alert/oriented, DTR's symmetric, Normal sensory exam, Normal motor strength, Judgement/insight normal, Mood normal, Normal gait, No focal deficits Misc: normal gait, Normal back, No paraspinal tenderness Labs/Radiology/EKG Results - Lab Results Results: K+: 3.2 - EKG Interpretations Rate & Rhythm: Atrial Flutter/Atrial Fibrillation; Ventricular-Paced Rhythm; LAD [place]: LAD Assessment - Assessment Critical Care Time: One Hour ED Septic Shock - . Is Septic Shock (SBP<90, OR Lactate>4 mmol\L) present?: No - <6hrs of presentation: Assessment of Lungs: Lung CTA bilateral, Ventilator, Decreased BS, Rhonchi, No Rhonchi, Rales, No Rales, Wheezing, No Wheezing, Stridor, No Stridor, Other, Documented in PE Assessment of Heart: RRR, Thrill, No thrill, Gallops, No Gallops, S3, S4, Rub, No Rub, Murmur, No Murmur, Other, Documented in PE EKG Interpretation: Documented in Result Capillary refill evaluation: Capillary refill < 2 secs, Capillary refill > 2 secs, Other, Documented in PE Skin Exam: Warm, Dry, Good Turgur, Poor Turgor, Pallor, No Pallor, Diaphoretic, No Diaphoresis, Mottled, No Mottling, Cyanotic, Edema, No Edema, Erythema, No Erythema, Other, Documented in PE Reassessment (Disposition) - Reassessment Reassessment Condition:: Improved - Diagnosis Diagnosis:: Intractable Vomiting; Intractable Pain; Abdominal Pain; Chest Pain; Hypokalemia ; Unstable Angina - Aftercare/Follow up Instructions Aftercare/Follow-Up Instructions:: Counseled pt & family regarding lab results/ diagnosis & need follow up - Patient Disposition Discharge/Transfer:: Acute Care w/in this hosp Accepting Physician:: Dr. Chamorro Time Called:: 1800 Time Responded:: 18:00 Admitted to:: Telemetry Admitting Medical Physician:: Dr. Chamorro Condition at Disposition:: Stable
[2016-10-16] MEDS ORDERED: Sodium Chloride 0.9% 500 ML IV ONE (15:47)
[2016-10-16 16:06] LABS: % BASOPHILS 0.5 % (0.0-2.0); % EOSINOPHILS 1.8 % (0.0-5.0); % LYMPHOCYTES 35.1 % (20.0-50.0); % MONOCYTES 4.1 % (2.0-10.0); % NEUTROPHILS 58.5 % (40.0-80.0); HEMATOCRIT 45.9 % (39.0-49.0); HEMOGLOBIN 15.4 gm/dL (13.2-17.3); MEAN CELL VOLUME 87.9 fl (80-99); MEAN CORPUSCULAR HEMOGLOBIN 29.5 pg (26.0-30.0); MEAN CORPUSCULAR HGB CONC 33.5 pg (28.0-36.0); MEAN PLATELET VOLUME 11.1 fl; NEUTROPHILE ABSOLUTE 6.3 Th/cmm (1.8-8.0); PLATELET COUNT 104 Th/cmm (150-400); RED BLOOD COUNT 5.22 Mil/cmm (4.30-5.70); RED CELL DISTRIBUTION WIDTH 13.3 % (11.5-20.0)
[2016-10-16 16:18] LABS: INR 1.07 (0.5-1.4); PROTHROMBIN TIME (TEST) 11.1 SECONDS (9.5-11.5)
[2016-10-16 16:21] LABS: BNP 63.2 pg/mL (5.0-100.0)
[2016-10-16 16:22] LABS: ALB/GLOB RATIO 1.8 (1.0-1.8); ALKALINE PHOSPHATASE 88 U/L (34-104); ANION GAP 8.3 (7.0-16.0); BILIRUBIN,TOTAL 0.9 mg/dL (0.3-1.0); BUN - UREA NITROGEN 10 mg/dL (7-25); BUN/CREATININE RATIO 11.1; CALCIUM SERUM 10.2 mg/dL (8.6-10.3); CARBON DIOXIDE 28.9 mEq/L (21.0-31.0); CHLORIDE 103 mEq/L (98-107); CHOLESTEROL 120 mg/dL (<200); CREATININE - SERUM 0.9 mg/dL (0.7-1.3); GLUCOSE 69 mg/dL (70-105); POTASSIUM SERUM 3.2 mEq/L (3.5-5.1); SGOT 24 U/L (13-39); SGPT/ALT 13 U/L (7-52); SODIUM SERUM 137 mEq/L (136-145); TRIGLYCERIDES 83 mg/dL (<150); TROP I 0.02 ng/mL (0.01-0.05)
[2016-10-16 16:23] LABS: AMYLASE SERUM 51 U/L (29-103); LIPASE 42 U/L (11-82)
[2016-10-16 17:43] LABS: AMPHETAMINE URINE NEGATIVE (NEGATIVE); BARBITURATES URINE NEGATIVE (NEGATIVE); METHADONE URINE NEGATIVE (NEGATIVE)
[2016-10-16] MEDS ORDERED: Potassium Chloride 20 mEq ER Tab PO ONE ×2 (17:55→18:23)
[2016-10-16] MEDS ORDERED: Aspirin 81mg Chewable Tab PO STA (18:03)
[2016-10-16] MEDS ORDERED: Morphine Sulfate 2 mg/mL 1mL Syr IV STA (18:20)
[2016-10-16] MEDS ORDERED: Morphine Sulfate 2 mg/mL 1mL Syr ONE (18:23)
[2016-10-16] MEDS ORDERED: Aspirin 81mg Chewable Tab ONE (18:23)
[2016-10-17 07:21] LABS: % EOSINOPHILS 0.8 % (0.0-5.0); % LYMPHOCYTES 27.2 % (20.0-50.0); % MONOCYTES 5.8 % (2.0-10.0); % NEUTROPHILS 66.2 % (40.0-80.0); HEMATOCRIT 46.3 % (39.0-49.0); HEMOGLOBIN 15.8 gm/dL (13.2-17.3); MEAN CELL VOLUME 86.3 fl (80-99); MEAN CORPUSCULAR HEMOGLOBIN 29.4 pg (26.0-30.0); MEAN PLATELET VOLUME 10.6 fl; NEUTROPHILE ABSOLUTE 8.2 Th/cmm (1.8-8.0); PLATELET COUNT 102 Th/cmm (150-400); RED BLOOD COUNT 5.37 Mil/cmm (4.30-5.70); RED CELL DISTRIBUTION WIDTH 12.9 % (11.5-20.0)
[2016-10-17 07:28] LABS: WHITE BLOOD COUNT 12.3 Th/cmm (4.8-10.8)
[2016-10-17 07:34] LABS: ANION GAP 16.8 (7.0-16.0); BUN - UREA NITROGEN 11 mg/dL (7-25); BUN/CREATININE RATIO 12.2; CARBON DIOXIDE 28.2 mEq/L (21.0-31.0); CHLORIDE 98 mEq/L (98-107); CREATININE - SERUM 0.9 mg/dL (0.7-1.3); GLUCOSE 86 mg/dL (70-105); SODIUM SERUM 139 mEq/L (136-145)
[2016-10-17] MEDS: Pantoprazole 40 mg EC Tab PO SCH (08:33)
--- NOTE | 2016-10-17 10:18 | Diagnostic Imaging Report ---
Portable chest x-ray HISTORY: Pain The overall heart size appears normal. Cardiac pacemaker lead wire projects over the right ventricle. No focal pulmonary processes. No hilar or mediastinal abnormalities. IMPRESSION: 1. No acute pulmonary processes 2. Cardiac pacemaker placement
--- NOTE | 2016-10-17 17:50 | History & Physical ---
ADMIT DATE: 10/16/2016 HISTORY OF PRESENT ILLNESS: The patient is a 46-year-old male patient. The patient had several episodes of nausea, vomiting, abdominal pain, chest pain, complains of fever ____ chills. The patient has no other problems. ALLERGIES: The patient is allergic to multiple medications, see the notes, reconciliation sheet. REVIEW OF SYSTEMS: The patient is complaining mainly of fever, chills, nausea, vomiting, abdominal pain and chest pain. All other system review was negative. PAST MEDICAL HISTORY: History of hypertension, coronary artery disease, hyperlipidemia, peptic ulcer disease. FAMILY HISTORY: Peptic ulcer disease, history of heart disease and hypertension and diabetes. PHYSICAL EXAMINATION: GENERAL: The patient is a male patient. VITAL SIGNS: Noted on the chart. HEAD: Normal. ENT: Normal. NECK: Supple and nontender. LUNGS: Clear. CARDIOVASCULAR SYSTEM: S1, S2 heard. ABDOMEN: Soft. Bowel sounds are heard. CENTRAL NERVOUS SYSTEM: Grossly nonfocal. LABORATORY DATA: Potassium was low at 3.2. EKG showed atrial flutter/fibrillation. Chest x-ray was normal. DIAGNOSES: Intractable vomiting, abdominal pain, rule out peptic ulcer disease, chest pain, rule out acute coronary syndrome and hypokalemia, unstable angina, history of atrial flutter/fibrillation and history of coronary artery disease in the past, history of hyperlipidemia and peptic ulcer disease. PLAN: The patient is being admitted. I will have a GI and also will have Cardiology consult. JOB# [id number]
[2016-10-18] MEDS: Pantoprazole 40 mg EC Tab PO SCH (08:56)
--- NOTE | 2016-10-18 11:56 | Admit Criteria Form ---
Admit Criteria Forms - Admit Criteria Diagnosis: TELEMETRY CARE Telemetry Admission Guidelines (Place 'X' for any and all applicable criteria): Admission to telemetry [A] may be indicated for ANY ONE of the following(1)(2)(3 )(4)(5): [X ]I. Cardiac disease, including ANY ONE of the following (9)(10)(11)(12)( 13): [ ]a) Postacute NC [ ]b) Low-risk patients with ST-segment elevation NC who have undergone successful percutaneous coronary intervention [ X]c) Unstable angina [ ]d) Suspected NC (until it is ruled out) [ ]e) Post cardiac surgery (first 48 to 72 hours unless complications occur) [ ]f) Acute arrhythmias (including significant tachycardia or bradycardia) [B] [ ]g) Firing of an implantable cardioverter defibrillator [C] [ ]h) Suspected pacemaker or implantable cardioverter defibrillator malfunction (10) [ ]i) New administration or adjustment of an antiarrhythmic drug [D ] [ ]j) Child admitted for acute congestive heart failure [ ]j) Long QT syndrome [ ]k) Advanced heart block (eg, second-degree Mobitz type II, third- degree heart block) [ ]l) Acute myocarditis or pericarditis [ ]m) Short-term (ambulatory or inpatient) monitoring after a cardiac procedure as indicated by ANY ONE of the following [E]: [ ]i) Electrophysiologic studies [ ]ii) Percutaneous coronary intervention with stent placement [ ]iii) Pacemaker placement with cardiac conduction defect [ ]iv) Implantable cardiac defibrillator placement [ ]II. Drug overdose or poisoning with substance that causes arrhythmias or QT prolongation (eg, phenothiazines, sympathomimetic agents, cyclic antidepressants, digitalis, antiarrhythmic drugs)(15) [ ]III. Short-term (ambulatory or inpatient) monitoring after therapeutic or diagnostic procedure requiring conscious sedation or anesthesia (eg, endoscopy, elective cardioversion) [ ]IV. Acute cerebrovascular even[F](18) [ ]V. Massive blood transfusion (eg, at least 10 units of packed red blood cells in 24 hours) [ ]. Variceal bleeding after endoscopy, sclerotherapy, or IV vasopressin [ ]VII. Uncorrected electrolyte abnormalities associated with an increased risk of dangerous arrhythmia [G]; examples include [ ]a) Hyperkalemia with attributable ECG changes [ ]b) Potassium greater than 6.5 mmol/L (mEq/L) in a patient without history of chronic renal disease [ ]c) Prolonged QT attributed to hypokalemia, hypomagnesemia, or hypocalcemia [ ]VIII.Unexplained syncope or other neurologic event suspected of being due to arrhythmia due to a finding that increases risk; examples include(19)(20)(21): [ ]a) High-risk ECG findings (eg, bifascicular block, bradycardia, abnormal QT interval, ventricular pre- excitation) [ ]b) History of previous syncope due to arrhythmia [ ]c) Abnormal ventricular function (eg, reduced ejection fraction ) [ ]d) Exertional or supine syncope [ ]e) Concerning syncope characteristics (eg, sudden loss of consciousness without prodrome) [ ]f) Family history of sudden [ ]g) Use of arrhythmogenic medication [ ]h) Suspected cardiac ischemia [ ]i) Known channelopathy (eg, long QT syndrome, Brugada syndrome, or catecholaminergic paroxysmal ventricular tachycardia) [ ]j) Known structural heart disease (eg, hypertrophic cardiomyopathy , severe valvular disease) [ ]k) Palpitations preceding syncope The original [employer] content created by [employer] has been revised. The portions of the content which have been revised are identified through the use of italic text or in bold, and [employer], [facility] has neither reviewed nor approved the modified material. All other unmodified content is copyright [employer]. Please see references footnoted in the original [employer] edition 2016 Admit Criteria Met?: Yes
== END 2016-10-18 12:25 | disposition left against medical advice (07) | DRG 249 ==
LOC: ER 15:24 → TELE 18:00
PROVIDERS: ADMIT Internal Medicine; ATTEND Internal Medicine
DX: R11.10 Vomiting, unspecified (principal); I48.91 Unspecified atrial fibrillation; I10 Essential (primary) hypertension; I25.110 Atherosclerotic heart disease of native coronary artery with unstable angina pectoris; E87.6 Hypokalemia; E78.5 Hyperlipidemia, unspecified; F31.9 Bipolar disorder, unspecified; F17.210 Nicotine dependence, cigarettes, uncomplicated; R07.9 Chest pain, unspecified; Z87.11 Personal history of peptic ulcer disease; Z88.1 Allergy status to other antibiotic agents; Z88.0 Allergy status to penicillin; Z88.8 Allergy status to other drugs, medicaments and biological substances; Z83.3 Family history of diabetes mellitus; Z82.49 Family history of ischemic heart disease and other diseases of the circulatory system
CPT/HCPCS: 36415-UA; 71010-TC; 80048-TC; 80053-TC; 80061-TC; 80307; 82150-TC; 82550-TC; 83690-TC; 83880-TC; 84484-TC; 85025-TC; 85610-TC; 93005; 94760; 96374; J2270; J2405; J7040; Z7610

== ENCOUNTER 2016-12-13 08:22 | Emergency (ER) | payer MEDICARE, MEDICAID ==
[2016-12-13] MEDS ORDERED: Sodium Chloride 0.9% 1,000 ML IV ONE (08:35)
[2016-12-13 08:55] LABS: % EOSINOPHILS 1.3 % (0.0-5.0); % MONOCYTES 2.5 % (2.0-10.0); % NEUTROPHILS 71.2 % (40.0-80.0); HEMATOCRIT 48.9 % (39.0-49.0); HEMOGLOBIN 16.5 gm/dL (13.2-17.3); MEAN CELL VOLUME 89.2 fl (80-99); MEAN CORPUSCULAR HEMOGLOBIN 30.1 pg (26.0-30.0); MEAN CORPUSCULAR HGB CONC 33.7 pg (28.0-36.0); MEAN PLATELET VOLUME 9.7 fl; NEUTROPHILE ABSOLUTE 7.5 Th/cmm (1.8-8.0); RED BLOOD COUNT 5.48 Mil/cmm (4.30-5.70); RED CELL DISTRIBUTION WIDTH 12.5 % (11.5-20.0); WHITE BLOOD COUNT 10.5 Th/cmm (4.8-10.8)
[2016-12-13 09:03] LABS: PLATELET COUNT 103 Th/cmm (150-400)
[2016-12-13 09:08] LABS: INR 1.05 (0.5-1.4); PROTHROMBIN TIME (TEST) 10.9 SECONDS (9.5-11.5)
[2016-12-13 09:12] LABS: ALB/GLOB RATIO 1.6 (1.0-1.8); ALKALINE PHOSPHATASE 98 U/L (34-104); ANION GAP 11.5 (7.0-16.0); BILIRUBIN,TOTAL 1.3 mg/dL (0.3-1.0); BUN - UREA NITROGEN 14 mg/dL (7-25); BUN/CREATININE RATIO 11.7; CALCIUM SERUM 10.2 mg/dL (8.6-10.3); CARBON DIOXIDE 30.5 mEq/L (21.0-31.0); CHLORIDE 98 mEq/L (98-107); CREATININE - SERUM 1.2 mg/dL (0.7-1.3); GLUCOSE 87 mg/dL (70-105); SGOT 24 U/L (13-39); SGPT/ALT 13 U/L (7-52); SODIUM SERUM 136 mEq/L (136-145)
--- NOTE | 2016-12-13 09:37 | ED Physician Chart ---
Chief Complaint/HPI - Patient Information Date Seen:: 12/13/16 Time Seen:: 08:37 Chief Complaint:: vomiting History of Present Illness:: THIS IS A 46 YR OLD MALE WITH THE ONSET OF VOMITING AFTER EATING A GREASY SANDWICH LAST NIGHT. HE STATES THAT HE HAS HAD THESE PROBLEMS BEFORE AND IS CONCERNED ABOUT THE PAIN. HE STATES THAT HE ALSO HAS A HEART CONDITION FROM . HE STATES THAT HE HAD HEART SURGERY AT AGE 7 YO. HE DENIES FEVER, DIARRHEA AND CHEST PAIN. HE STATES THAT HE HAS EPIGASTRIC PAIN 8/10 SINCE VOMITING. Allergies:: Allergies Allergy/AdvReac Type Severity Reaction Status Date / Time clindamycin Allergy Verified 10/14/16 10:47 metoclopramide HCl Allergy Verified 10/14/16 10:47 [From Reglan] Penicillins [PCN] Allergy Verified 10/14/16 10:47 prochlorperazine Allergy Verified 10/14/16 10:47 [From Compazine] prochlorperazine edisylate Allergy Verified 10/14/16 10:47 [From Compazine] prochlorperazine maleate Allergy Verified 10/14/16 10:47 [From Compazine] Vitals:: Vital Signs - 8 hr 12/13/16 08:32 Temp 97.7 F HR 74 RR 16 BP 134/83 O2 Sat % 100 Historian:: Patient, Medical Records Review:: Nurse's Note Reviewed, Old Chart Reviewed Review of Systems - Review of Systems General/Constitutional: No fever, No chills, No weight loss, No weakness, No diaphoresis, No edema, No loss of appetite Skin: No skin lesions, No rash, No bruising Head: No headache, No light-headedness Eyes: No loss of vision, No pain, No diplopia ENT: No earache, No nasal drainage, No sore throat, No tinnitus Neck: No neck pain, No swelling, No thyromegaly, No stiffness, No mass noted Cardio Vascular: No chest pain, No palpitations, No PND, No orthopnea, No edema Pulmonary: No SOB, No cough, No sputum, No wheezing GI: Nausea, Vomiting, No diarrhea, Pain, No melena, No hematochezia, No constipation, No hematemesis G/U: No dysuria, No frequency, No hematuria Musculoskeletal: No bone or joint pain, No back pain, No muscle pain Endocrine: No polyuria, No polydipsia Psychiatric: Prior psych history, Depression, No anxiety, No suicidal ideation Hematopoietic: No bruising, No lymphadenopathy Allergic/Immuno: No urticaria, No angioedema Neurological: No syncope, No focal symptoms, No weakness, No paresthesia, No headache, No seizure, No dizziness, No confusion, No vertigo Past Medical History - Past Medical History Obtainable: Yes Past Medical History: Dyslipidemia, PUD/GERD, Other (HEP C,) Family History: Heart disease, Diabetes Melitus, HTN Social History: Smoker (THC), No Alcohol, Illicit Drug Use (THC), Surgical History: Pacemaker, other (VALVE SURGERY FOR HEART ARRTHMIA AT 7 YO) Psychiatricy History: Depression, Bipolar Medication: Reviewed Family Medical History - Family Member Mother History Unknown: Yes Ethnicity: Living Status: Still Living Hx Family Cancer: No Hx Family Congestive Heart Failure: No Hx Family Hypertension: Yes Hx Family Stroke: No Hx Family Diabetes: Yes Hx Family Seizures: No Hx Family Dementia: No Hx Family HIV: No Hx Family COPD: No Hx Family Hepatitis: No Hx Family Psychiatric Problems: No Hx Family Tuberculosis: No Physical Exam - Physical Examination General/Constitutional: Awake, Well-developed, well-nourished, Alert, No distress, GCS 15, Non-toxic appearing, Ambulatory Head: Atraumatic Eyes: Lids, conjuctiva normal, PERRL, EOMI Skin: Nl inspection, No rash, No skin lesions, No ecchymosis, Well hydrated, No lymphadenopathy ENMT: External ears, nose nl, Nasal exam nl, Lips, teeth, gums nl Neck: Nontender, Full ROM w/o pain, No JVD, No nuchal rigidity, No bruit, No mass, No stridor Respiratory: Nl effort/Exclusion, Clear to Auscultation, No Wheeze/Rhonchi/Rales Cardio Vascular: RRR, No murmur, gallop, rubs, NL S1 S2 Other Cardio Vascular comments:: AN OLD SURGICAL HEART SURGERY SCAR NOTED ON THE CHEST WALL. THERE IS A PACEMAKER ON THE RIGHT CHEST WALL AND A WELL HEALING SCAR ON THE LEFT CHEST WALL FROM AN INFECTED PACEMAKER. GI: No organomegaly, No hernia, Normal BS's, Nondistended, No mass/bruits, No McBurney tenderness Other GI comments:: THERE IS TENDERNESS OF THE EPIGASTRIC AREA WITH A SMALL VENTRAL HERNIA NOTED. : No CVA tenderness Extremities: No tenderness or effusion, Full ROM, normal strength in all extremities, No edema, Normal digits & nails Neuro/Psych: Alert/oriented, DTR's symmetric, Normal sensory exam, Normal motor strength, Judgement/insight normal, Mood normal, Normal gait, No focal deficits Misc: normal gait, Normal back, No paraspinal tenderness Labs/Radiology/EKG Results - Lab Results Results: Laboratory Tests 12/13/16 12/13/16 12/13/16 08:50 08:50 08:50 WBC 10.5 RBC 5.48 Hgb 16.5 Hct 48.9 MCV 89.2 MCH 30.1 H MCHC Differential 33.7 RDW 12.5 Plt Count 103 L MPV 9.7 Neutrophils % 71.2 Lymphocytes % 25.0 Monocytes % 2.5 Eosinophils % 1.3 Basophils % 0.0 Sodium 136 Potassium 4.0 Chloride 98 Carbon Dioxide 30.5 Anion Gap 11.5 BUN 14 Creatinine 1.2 Est GFR ( Amer) > 60.0 Est GFR (Non-Af Amer) > 60.0 BUN/Creatinine Ratio 11.7 Glucose 87 Calcium 10.2 Total Bilirubin 1.3 H AST 24 ALT 13 Alkaline Phosphatase 98 Troponin I 0.01 Total Protein 7.9 Albumin 4.9 Globulin 3.0 Albumin/Globulin Ratio 1.6 - EKG Interpretations EKG Time:: 08:59 Rate & Rhythm: 71 AND PACED RHYTHM [place]: LEFT ED Septic Shock - . Is Septic Shock (SBP<90, OR Lactate>4 mmol\L) present?: No - <6hrs of presentation: Vital Signs: Vital Signs - 8 hr 12/13/16 08:32 Temp 97.7 F HR 74 RR 16 BP 134/83 O2 Sat % 100
[2016-12-13 09:56] LABS: CHOLESTEROL 135 mg/dL (<200); TRIGLYCERIDES 125 mg/dL (<150)
[2016-12-13 10:04] LABS: URINE BILIRUBIN NEGATIVE (NEGATIVE); URINE COLOR YELLOW; URINE GLUCOSE (UA) NEGATIVE (NEGATIVE); URINE KETONE 15 mg/dL (NEGATIVE)
[2016-12-13 10:05] LABS: URINE BACTERIA NONE SEEN /hpf (NONE SEEN); URINE BLOOD NEGATIVE (NEGATIVE); URINE EPITHELIAL CELLS OCCASIONAL /lpf (FEW); URINE PROTEIN NEGATIVE (NEGATIVE); URINE RBC 0-2 /hpf (0-5); URINE UROBILINOGEN 0.2 E.U./dL (0.2 - 1.0); URINE WBC 0-2 /hpf (0-5)
[2016-12-13 10:07] LABS: AMPHETAMINE URINE NEGATIVE (NEGATIVE); BARBITURATES URINE NEGATIVE (NEGATIVE); METHADONE URINE NEGATIVE (NEGATIVE)
--- NOTE | 2016-12-13 11:48 | Diagnostic Imaging Report ---
Portable chest x-ray HISTORY: Pain The heart size appears generous. Cardiac electrode lead wire projects over the right ventricle. No focal pulmonary processes. No hilar or mediastinal abnormalities. IMPRESSION: 1. No acute abnormalities
== END 2016-12-13 10:43 | disposition home or self-care (01) ==
LOC: ER 08:22
DX: R11.10 Vomiting, unspecified (principal); E78.5 Hyperlipidemia, unspecified; K21.9 Gastro-esophageal reflux disease without esophagitis; F12.90 Cannabis use, unspecified, uncomplicated; Z95.0 Presence of cardiac pacemaker; Z88.1 Allergy status to other antibiotic agents; Z88.0 Allergy status to penicillin; Z88.8 Allergy status to other drugs, medicaments and biological substances
CPT/HCPCS: 36415-UA; 71010-TC; 80053-TC; 80061-TC; 80307; 81001-TC; 84443-TC; 84484-TC; 85025-TC; 85610-TC; 85730-TC; 86592-TC; 93005; 96374; 96375; J2060; J2405; J7030

== ENCOUNTER 2016-12-26 19:48 | Emergency (ER) | payer MEDICARE, MEDICAID ==
--- NOTE | 2016-12-26 21:14 | ED Physician Chart ---
Chief Complaint/HPI - Patient Information Date Seen:: 12/26/16 Time Seen:: 20:05 Chief Complaint:: Chronic recurrent nausea/vomiting for months. History of Present Illness:: Pt came to the ER at the time when the ER was very busy. Pt was evaluated briefly. He did not appear to be in distress except having a transient episode of nausea/vomiting with vomitus consists of nonbloody gastric content. Pt has h/ o marijuana abuse and has had numerous ER visits for same condition. Pt otherwise appeared to be stable and comfortable. After finishing attending to other immediate emergent situations at the ER, I returned to pt and continued my evaluation/discussion with him. Pt stated that he had last marijuana use yesterday. Pt again was explained about health risks associated with chronic marijuana use and was advised to stop using it. Pt became angry and belligerent. Pt became verbally abusive. He accused me for being "unprofessional " for talking about his marijuana abuse. I remained composed and explained to him that I am obligated to provide him factual information regarding marijuana abuse and advice for a more healthful lifestyle. I reassured him that I will further examine him and manage his condition. Pt was alert and oriented x 3. Pt refused to discuss with me further and decided to go elsewhere for further treatment. Pt was explained that he is welcomed to return anytime if he wants further treatment/management. However, pt just ignored me. Pt walked out of this ER quickly and steadily without assistance without difficulty. Pt eloped without completion of this ER visit. My discussion with pt was witnessed by my nurse Mr. Mohinder Marroquin. Allergies:: Allergies Allergy/AdvReac Type Severity Reaction Status Date / Time clindamycin Allergy Verified 10/14/16 10:47 metoclopramide HCl Allergy Verified 10/14/16 10:47 [From Reglan] Penicillins [PCN] Allergy Verified 10/14/16 10:47 prochlorperazine Allergy Verified 10/14/16 10:47 [From Compazine] prochlorperazine edisylate Allergy Verified 10/14/16 10:47 [From Compazine] prochlorperazine maleate Allergy Verified 10/14/16 10:47 [From Compazine] Vitals:: Vital Signs - 8 hr 12/26/16 19:56 Temp 97.6 F HR 70 RR 18 BP 175/106 O2 Sat % 100 Historian:: Patient Family Medical History - Family Member Mother History Unknown: Yes Ethnicity: Living Status: Still Living Hx Family Cancer: No Hx Family Coronary Artery Disease: No Hx Family Congestive Heart Failure: No Hx Family Hypertension: Yes Hx Family Stroke: No Hx Family Diabetes: Yes Hx Family Seizures: No Hx Family Dementia: No Hx Family AIDS: No Hx Family HIV: No Hx Family COPD: No Hx Family Hepatitis: No Hx Family Psychiatric Problems: No Hx Family Tuberculosis: No ED Septic Shock - . Is Septic Shock (SBP<90, OR Lactate>4 mmol\\L) present?: No - <6hrs of presentation: Vital Signs: Vital Signs - 8 hr //17 19:56 Temp 97.6 F HR 70 RR 18 BP 175/106 O2 Sat % 100 Reassessment (Disposition) - Reassessment Reassessment Condition:: Improved - Diagnosis Diagnosis:: H/O chronic marijuana abuse with cannabinoid hyperemesis syndrome. - Patient Disposition Discharge/Transfer:: Elope/AWOL Time:: 21:10 Condition at Disposition:: Stable, Improved ED Discharge Plan - Patient Disposition Admit/Discharge/Transfer: PATIENT ELOPED Condition at Disposition: Stable
== END 2016-12-26 21:10 | disposition left against medical advice (07) ==
LOC: ER 19:48
DX: J66.2 Cannabinosis (principal); R11.10 Vomiting, unspecified; Z88.0 Allergy status to penicillin; Z88.1 Allergy status to other antibiotic agents
CPT/HCPCS: Z7502

== ENCOUNTER 2017-02-27 08:21 | Emergency (ER) | payer MEDICARE, MEDICAID ==
--- NOTE | 2017-02-27 08:46 | ED Physician Chart ---
ED Chief Complaint/HPI - Patient Information Date Seen:: 02/27/17 Time Seen:: 08:35 Chief Complaint:: Recurrent nausea/vomiting for 4 days. History of Present Illness:: Pt came in by private auto for the above reason. Pt has h/o marijuana abuse and has been diagnosed to have cannabinoid hyperemesis syndrome. Pt has been followed with PCP Dr. Soto at [facility] with last visit about a month ago. Pt has been referred to [facility]. Pt had last use of marijuana use this morning. Pt had last emesis at about 0800 today with vomitus consists of gastric content. No hematemesis. No fever. Last BM this morning that was normal in color/consistency. No hematochezia or melena. Pt remains ambulatory without lightheadedness. No specific abdominal pain or discomfort otherwise. Allergies:: Allergies Allergy/AdvReac Type Severity Reaction Status Date / Time clindamycin Allergy Verified 10/14/16 10:47 metoclopramide HCl Allergy Verified 10/14/16 10:47 [From Reglan] Penicillins [PCN] Allergy Verified 10/14/16 10:47 prochlorperazine Allergy Verified 10/14/16 10:47 [From Compazine] prochlorperazine edisylate Allergy Verified 10/14/16 10:47 [From Compazine] prochlorperazine maleate Allergy Verified 10/14/16 10:47 [From Compazine] Vitals:: see Nurse Note. Historian:: Patient Family MD/PCP:: Dr. Soto at [facility]. LMP:: N/A Review:: Nurse's Note Reviewed ED Review of Systems - Review of Systems General/Constitutional: No fever, Weight loss (about 10 lbs over past 2 months ago.), No edema Skin: No bruising Head: No headache, No light-headedness Eyes: No loss of vision, No pain, No diplopia ENT: No earache, No nasal drainage, No sore throat Neck: No neck pain, No swelling, No thyromegaly, No stiffness Cardio Vascular: No chest pain, No palpitations, No edema Pulmonary: No SOB, No cough, No wheezing GI: Nausea, Vomiting, No diarrhea, No pain, No melena, No hematochezia, No hematemesis G/U: No dysuria, No frequency, No hematuria Musculoskeletal: No bone or joint pain, No back pain, No muscle pain Endocrine: No polyuria, No polydipsia Psychiatric: Prior psych history, No depression, No anxiety, No suicidal ideation, No homicidal ideation, No auditory hallucination, No visual hallucination Hematopoietic: No bruising, No lymphadenopathy Allergic/Immuno: No urticaria, No angioedema Neurological: No syncope, No focal symptoms, No weakness, No headache ED Past Medical History - Past Medical History Past Medical History: Other (H/O hepatitis C. Cardiac dysrrhythmia, s/p pacemaker placement .) Family History: None Social History: Non Smoker, No Alcohol, Illicit Drug Use (with marijuana. Pt again has been informed about health risks associated with chronic marijuana use and has been advised to quit. Pt acknowledges understanding and states that he is in the process to have referral to a drug rehab program through his PCP Dr. Soto.) Surgical History: Pacemaker (in 2013.) Psychiatricy History: Depression Medication: Reviewed Family Medical History - Family Member Mother History Unknown: Yes Ethnicity: Living Status: Still Living Hx Family Cancer: No Hx Family Coronary Artery Disease: No Hx Family Congestive Heart Failure: No Hx Family Hypertension: Yes Hx Family Stroke: No Hx Family Diabetes: Yes Hx Family Seizures: No Hx Family Dementia: No Hx Family AIDS: No Hx Family HIV: No Hx Family COPD: No Hx Family Hepatitis: No Hx Family Psychiatric Problems: No Hx Family Tuberculosis: No ED Physical Exam - Physical Examination General/Constitutional: Awake, Well-developed, well-nourished, Alert, No distress, GCS 15, Non-toxic appearing, Ambulatory Other Gen/Cons comments:: Breathes comfortably, speaks clearly, and ambulates without difficulty. Head: Atraumatic Eyes: Lids, conjuctiva normal, PERRL, EOMI Other Eyes comments:: No scleral icterus. Skin: Nl inspection, No rash, No skin lesions, No ecchymosis, No lymphadenopathy ENMT: External ears, nose nl, Nasal exam nl, Oropharynx nl Other ENMT comments:: Mucous membrane is slightly dry. Neck: Nontender, Full ROM w/o pain, No nuchal rigidity, No mass, No stridor Respiratory: Nl effort/Exclusion Cardio Vascular: RRR, No murmur, gallop, rubs GI: No tenderness/rebounding/guarding, No organomegaly, Normal BS's, Nondistended, No mass/bruits Other GI comments:: Abdomen is soft. No definite tenderness. : No CVA tenderness Extremities: No edema Neuro/Psych: Alert/oriented (oriented x 3), Normal gait, No focal deficits ED Labs/Radiology/EKG Results - Lab Results Results: Laboratory Tests 02/27/17 02/27/17 02/27/17 08:58 08:58 08:58 WBC 7.0 D RBC 4.92 Hgb 14.3 D Hct 43.0 D MCV 87.3 MCH 29.1 MCHC Differential 33.3 RDW 12.9 Plt Count 76 L D MPV 9.6 Neutrophils (Manual) 70 Lymphocytes 24 Monocytes 4 Eosinophils 2 Platelet Estimate DECREASED PLATELETS Platelet Morphology NORMAL RBC Morph Micro Appear NORMAL PT 11.2 INR 1.08 PTT (Actin FS) 31.3 Sodium 137 Potassium 4.1 Chloride 103 Carbon Dioxide 28.8 Anion Gap 9.3 BUN 7 Creatinine 0.9 Est GFR ( Amer) > 60.0 Est GFR (Non-Af Amer) > 60.0 BUN/Creatinine Ratio 7.8 Glucose 81 Calcium 9.4 Total Bilirubin 0.7 AST 27 ALT 12 Alkaline Phosphatase 72 Total Protein 7.1 Albumin 4.5 Globulin 2.6 Albumin/Globulin Ratio 1.7 Urine Source Urine Color Urine Clarity Urine pH Ur Specific [place] Urine Protein Urine Glucose (UA) Urine Ketones Urine Blood Urine Nitrate Urine Bilirubin Urine Urobilinogen Ur Leukocyte Esterase Urine RBC Urine WBC Ur Epithelial Cells Urine Bacteria Urine Opiates Screen Urine Methadone Screen Ur Barbiturates Screen Ur Tricyclics Screen Ur Phencyclidine Scrn Amphetamines Screen U Methamphetamines Scrn U Benzodiazepines Scrn U Cocaine Metab Screen U Cannabinoids Screen 02/27/17 02/27/17 09:38 09:38 WBC RBC Hgb Hct MCV MCH MCHC Differential RDW Plt Count MPV Neutrophils (Manual) Lymphocytes Monocytes Eosinophils Platelet Estimate Platelet Morphology RBC Morph Micro Appear PT INR PTT (Actin FS) Sodium Potassium Chloride Carbon Dioxide Anion Gap BUN Creatinine Est GFR ( Amer) Est GFR (Non-Af Amer) BUN/Creatinine Ratio Glucose Calcium Total Bilirubin AST ALT Alkaline Phosphatase Total Protein Albumin Globulin Albumin/Globulin Ratio Urine Source [place] Urine Color YELLOW Urine Clarity CLEAR Urine pH 7.0 Ur Specific [place] <= 1.005 Urine Protein NEGATIVE Urine Glucose (UA) NEGATIVE Urine Ketones NEGATIVE Urine Blood NEGATIVE Urine Nitrate NEGATIVE Urine Bilirubin NEGATIVE Urine Urobilinogen 0.2 Ur Leukocyte Esterase NEGATIVE Urine RBC NONE SEEN Urine WBC NONE SEEN Ur Epithelial Cells RARE Urine Bacteria NONE SEEN Urine Opiates Screen NEGATIVE Urine Methadone Screen NEGATIVE Ur Barbiturates Screen NEGATIVE Ur Tricyclics Screen NEGATIVE Ur Phencyclidine Scrn NEGATIVE Amphetamines Screen NEGATIVE U Methamphetamines Scrn NEGATIVE U Benzodiazepines Scrn NEGATIVE U Cocaine Metab Screen NEGATIVE U Cannabinoids Screen POSITIVE H ED Septic Shock - . Is Septic Shock (SBP<90, OR Lactate>4 mmol\L) present?: No ED Reassessment (Disposition) - Reassessment Reassessment:: 1005 Pt remains stable and comfortable. Pt is in no distress. Discussed with pt about pain control, pt states that he does not need any pain medication at the present. 1100 Pt continues to improve. No recurrent nausea/vomiting. No pain. Remaining lab results just became available. Lab findings have been reviewed with pt. Pt requests to go home now and does not want further observation/management in hospital. Aftercare instructions have been given. His will drive him home. Reassessment Condition:: Improved - Diagnosis Diagnosis:: Cannabinoid hyperemesis syndrome. Stable and improved. - Aftercare/Follow up Instructions Aftercare/Follow-Up Instructions:: Refer to Discharge Instructions Notes:: Bedrest for today. Clear liquid diet for now. Advance diet as tolerated starting this evening. N/V/D instructions have been given. Abdominal pain instructions have been given. Pt again has been advised to stop marijuana use. F/U with PCP Dr. Soto at [facility] in one day for recheck. Return to ER immediately if condition worsens or if any further questions/problems. Medication Prescribed:: None - Patient Disposition Discharge/Transfer:: Home Time:: 11:00 Condition at Disposition:: Stable, Improved
[2017-02-27] MEDS ORDERED: Sodium Chloride 0.9% 1,000 ML IV ONE (08:49)
[2017-02-27 09:23] LABS: MEAN CELL VOLUME 87.3 fl (80-99); MEAN CORPUSCULAR HEMOGLOBIN 29.1 pg (26.0-30.0); MEAN CORPUSCULAR HGB CONC 33.3 pg (28.0-36.0); MEAN PLATELET VOLUME 9.6 fl; RED BLOOD COUNT 4.92 Mil/cmm (4.30-5.70); RED CELL DISTRIBUTION WIDTH 12.9 % (11.5-20.0)
[2017-02-27 09:26] LABS: ALB/GLOB RATIO 1.7 (1.0-1.8); ALKALINE PHOSPHATASE 72 U/L (34-104); ANION GAP 9.3 (7.0-16.0); BILIRUBIN,TOTAL 0.7 mg/dL (0.3-1.0); BUN - UREA NITROGEN 7 mg/dL (7-25); BUN/CREATININE RATIO 7.8; CALCIUM SERUM 9.4 mg/dL (8.6-10.3); CARBON DIOXIDE 28.8 mEq/L (21.0-31.0); CHLORIDE 103 mEq/L (98-107); CREATININE - SERUM 0.9 mg/dL (0.7-1.3); GLUCOSE 81 mg/dL (70-105); POTASSIUM SERUM 4.1 mEq/L (3.5-5.1); SGOT 27 U/L (13-39); SGPT/ALT 12 U/L (7-52); SODIUM SERUM 137 mEq/L (136-145)
[2017-02-27 09:28] LABS: INR 1.08 (0.5-1.4); PROTHROMBIN TIME (TEST) 11.2 SECONDS (9.5-11.5)
[2017-02-27 09:37] LABS: HEMOGLOBIN 14.3 gm/dL (12-16)
[2017-02-27 09:39] LABS: PLATELET COUNT 76 Th/cmm (150-400)
[2017-02-27 09:43] LABS: URINE BILIRUBIN NEGATIVE (NEGATIVE); URINE BLOOD NEGATIVE (NEGATIVE); URINE GLUCOSE (UA) NEGATIVE (NEGATIVE); URINE KETONE NEGATIVE (NEGATIVE); URINE PROTEIN NEGATIVE (NEGATIVE); URINE UROBILINOGEN 0.2 E.U./dL (0.2 - 1.0)
[2017-02-27 09:45] LABS: URINE COLOR YELLOW
[2017-02-27 09:52] LABS: URINE BACTERIA NONE SEEN /hpf (NONE SEEN); URINE EPITHELIAL CELLS RARE /lpf (FEW); URINE RBC NONE SEEN /hpf (0-5); URINE WBC NONE SEEN /hpf (0-5)
[2017-02-27 09:53] LABS: TOTAL CELLS COUNTED 100
[2017-02-27 09:56] LABS: EOSINOPHIL 2 % (0-5); NEUTROPHILS 70 % (40-80); PLATELET ESTIMATE DECREASED PLATELETS (NORMAL); PLATELET MORPHOLOGY NORMAL (NORMAL)
[2017-02-27 10:00] LABS: AMPHETAMINE URINE NEGATIVE (NEGATIVE); BARBITURATES URINE NEGATIVE (NEGATIVE)
[2017-02-27 10:01] LABS: METHADONE URINE NEGATIVE (NEGATIVE)
== END 2017-02-27 11:20 | disposition home or self-care (01) ==
LOC: ER 08:21
DX: F12.929 Cannabis use, unspecified with intoxication, unspecified (principal); I49.9 Cardiac arrhythmia, unspecified; Z95.0 Presence of cardiac pacemaker; Z88.0 Allergy status to penicillin; Z88.1 Allergy status to other antibiotic agents; Z88.8 Allergy status to other drugs, medicaments and biological substances; Z86.19 Personal history of other infectious and parasitic diseases
CPT/HCPCS: 99285; 96361; 96374; 36415; 80307; 85007; 85027; 85610; 81001; 80053; J2405; J7030

== ENCOUNTER 2017-06-23 18:28 | Emergency (ER) | payer MEDICARE, MEDICAID ==
[2017-06-23] MEDS ORDERED: Sodium Chloride 0.9% 1,000 ML IV ONE (20:12)
--- NOTE | 2017-06-23 20:19 | ED Physician Chart ---
ED Chief Complaint/HPI - Patient Information Date Seen:: 06/23/17 Time Seen:: 20:20 Chief Complaint:: vomiting History of Present Illness:: About one and a half hours ago the patient developed epigastric pain and vomiting. He vomited 12 times. He had no diarrhea Allergies:: Allergies Allergy/AdvReac Type Severity Reaction Status Date / Time clindamycin Allergy Verified 06/23/17 18:48 metoclopramide HCl Allergy Verified 06/23/17 18:48 [From Reglan] Penicillins [PCN] Allergy Verified 06/23/17 18:48 prochlorperazine Allergy Verified 06/23/17 18:48 [From Compazine] prochlorperazine edisylate Allergy Verified 06/23/17 18:48 [From Compazine] prochlorperazine maleate Allergy Verified 06/23/17 18:48 [From Compazine] Vitals:: Vital Signs - 8 hr 06/23/17 06/23/17 18:43 20:08 Temp 98.2 F HR 72 69 RR 16 20 BP 165/111 165/93 O2 Sat % 100 100 Historian:: Patient Review:: Nurse's Note Reviewed ED Review of Systems - Review of Systems General/Constitutional: No fever, No chills Skin: No skin lesions Head: No headache Eyes: No loss of vision ENT: No earache Neck: No neck pain Cardio Vascular: No chest pain, No palpitations Pulmonary: No SOB GI: Nausea, Vomiting, Pain G/U: No dysuria, No hematuria Musculoskeletal: No bone or joint pain, No back pain, No muscle pain Endocrine: No polyuria, No polydipsia Psychiatric: No prior psych history Hematopoietic: No bruising Allergic/Immuno: No urticaria Neurological: No syncope, No focal symptoms, No weakness ED Past Medical History - Past Medical History Past Medical History: PUD/GERD, Other (congenital heart disease) Family History: None Social History: Non Smoker, No Alcohol Surgical History: other (open heart surgery; pacemaker) Psychiatricy History: None Medication: Reviewed Family Medical History - Family Member Mother History Unknown: Yes Ethnicity: Living Status: Still Living Hx Family Cancer: No Hx Family Coronary Artery Disease: No Hx Family Congestive Heart Failure: No Hx Family Hypertension: Yes Hx Family Stroke: No Hx Family Diabetes: Yes Hx Family Seizures: No Hx Family Dementia: No Hx Family AIDS: No Hx Family HIV: No Hx Family COPD: No Hx Family Hepatitis: No Hx Family Psychiatric Problems: No Hx Family Tuberculosis: No ED Physical Exam - Physical Examination General/Constitutional: Well-developed, well-nourished, Alert Other Gen/Cons comments:: Mild distress Head: Atraumatic Eyes: Lids, conjuctiva normal, PERRL Skin: Nl inspection, No rash, No skin lesions, No ecchymosis ENMT: External ears, nose nl, TM canals nl, Nasal exam nl, Lips, teeth, gums nl Neck: No nuchal rigidity Respiratory: Nl effort/Exclusion, Clear to Auscultation, No Wheeze/Rhonchi/Rales Cardio Vascular: RRR, No murmur, gallop, rubs GI: No organomegaly, No hernia, Normal BS's, Nondistended, No mass/bruits, No McBurney tenderness Other GI comments:: Epigastric tenderness : No CVA tenderness Extremities: Normal digits & nails Neuro/Psych: No focal deficits ED Labs/Radiology/EKG Results - Lab Results Results: Laboratory Results - last 24 hr 06/23/17 06/23/17 06/23/17 20:17 20:17 20:17 WBC 12.6 H D RBC 5.56 Hgb 16.3 Hct 48.5 MCV 87.2 MCH 29.3 MCHC Differential 33.6 RDW 13.8 Plt Count 103 L MPV 9.6 Neutrophils % 76.4 Lymphocytes % 15.3 L Monocytes % 3.5 Eosinophils % 1.2 Basophils % 3.6 H Sodium 137 Potassium 3.9 Chloride 100 Carbon Dioxide 27.3 Anion Gap 13.6 BUN 5 L Creatinine 0.9 Est GFR ( Amer) > 60.0 Est GFR (Non-Af Amer) > 60.0 BUN/Creatinine Ratio 5.6 Glucose 87 Calcium 10.4 H Magnesium 2.1 Lipase 14 ED Assessment - Assessment General Assessment: Patient feels better 2144 ED Septic Shock - . Is Septic Shock (SBP<90, OR Lactate>4 mmol\L) present?: No - <6hrs of presentation: Vital Signs: Vital Signs - 8 hr 06/23/17 06/23/17 18:43 20:08 Temp 98.2 F HR 72 69 RR 16 20 BP 165/111 165/93 O2 Sat % 100 100 ED Reassessment (Disposition) - Reassessment Reassessment:: I stressed the importance of following up with a driver education instructor Reassessment Condition:: Improved - Diagnosis Diagnosis:: Gastritis; leukocytosis - Aftercare/Follow up Instructions Aftercare/Follow-Up Instructions:: Refer to Discharge Instructions - Patient Disposition Discharge/Transfer:: Home Condition at Disposition:: Stable, Improved
[2017-06-23 20:37] LABS: % BASOPHILS 3.6 % (0.0-2.0); % EOSINOPHILS 1.2 % (0.0-5.0); % LYMPHOCYTES 15.3 % (20.0-50.0); % MONOCYTES 3.5 % (2.0-10.0); % NEUTROPHILS 76.4 % (40.0-80.0); BASOPHILE ABSOLUTE 0.5 Th/cumm (0-0.2); EOSINOPHILE ABSOLUTE 0.2 Th/cmm (0.1-0.4); HEMATOCRIT 48.5 % (41.0-60); HEMOGLOBIN 16.3 gm/dL (12-16); LYMPHOCYTE ABSOLUTE 1.9 Th/cmm (1.5-3.0); MEAN CELL VOLUME 87.2 fl (80-99); MEAN CORPUSCULAR HEMOGLOBIN 29.3 pg (26.0-30.0); MEAN CORPUSCULAR HGB CONC 33.6 pg (28.0-36.0); MEAN PLATELET VOLUME 9.6 fl; MONOCYTE ABSOLUTE 0.4 Th/cmm (0.3-1.0); NEUTROPHILE ABSOLUTE 9.6 Th/cmm (1.8-8.0); PLATELET COUNT 103 Th/cmm (150-400); RED BLOOD COUNT 5.56 Mil/cmm (4.30-5.70); RED CELL DISTRIBUTION WIDTH 13.8 % (11.5-20.0)
[2017-06-23 20:46] LABS: ANION GAP 13.6 (7.0-16.0); BUN - UREA NITROGEN 5 mg/dL (7-25); CALCIUM SERUM 10.4 mg/dL (8.6-10.3); CARBON DIOXIDE 27.3 mEq/L (21.0-31.0); CHLORIDE 100 mEq/L (98-107); CREATININE - SERUM 0.9 mg/dL (0.7-1.3); GFR AFRICAN-AMERICAN > 60.0 ml/min (>90); GFR NON AFRICAN-AMERICAN > 60.0 ml/min; GLUCOSE 87 mg/dL (70-105); LIPASE 14 U/L (11-82); POTASSIUM SERUM 3.9 mEq/L (3.5-5.1); SODIUM SERUM 137 mEq/L (136-145)
[2017-06-23 21:01] LABS: WHITE BLOOD COUNT 12.6 Th/cmm (4.8-10.8)
[2017-06-23] MEDS ORDERED: HYDROmorphone 1 mg/mL 1mL Syr IVP STA (21:28)
[2017-06-23] MEDS ORDERED: HYDROmorphone 1 mg/mL 1mL Syr ONE (21:29)
== END 2017-06-23 21:52 | disposition home or self-care (01) ==
LOC: ER 18:28
DX: K29.70 Gastritis, unspecified, without bleeding (principal); D72.829 Elevated white blood cell count, unspecified; K21.9 Gastro-esophageal reflux disease without esophagitis; Z88.0 Allergy status to penicillin; Z88.1 Allergy status to other antibiotic agents; Z88.8 Allergy status to other drugs, medicaments and biological substances
CPT/HCPCS: 99284; 96374; 96375; 36415; 83605; 85025; 83690; 83735; 80048; J2405; J1170; J7030; Z7502

== ENCOUNTER 2017-06-25 13:35 | Emergency (ER) | payer MEDICARE, MEDICAID ==
--- NOTE | 2017-06-25 13:57 | ED Physician Chart ---
ED Chief Complaint/HPI - Patient Information Date Seen:: 06/25/17 Time Seen:: 13:52 Chief Complaint:: NAUSEA, VOMITING AND ABD PAIN. History of Present Illness:: THIS 47 YEAR OLD MALE PRESENT WITH ONSET OF UP TO 25 EPISODES OF VOMITING SINCE HE AWOKE AT [facility] 8 AM. THE VOMITING WAS SEVERE AND THERE HAVE BEEN A FEW EPISODES OF NON-BLOODY DIARRHEA TODAY.THE ABDOMINAL PAIN IS SHARP AND IN THE UMBILICAL AREA. HE RATES THE PAIN 10/10. THERE ARE NO RELIEVING FACTORS AND THE PAIN IS INCREASED WHEN HE VOMITS. THE PAIN RADIATES TO THE BACK. THE PT HAS GUILLEN MULTIPLE EPISODES OF THE SAME SYMPTOMS. HE HAS BEEN SEEN IN THE ED WITH THE SAME COMLAINT 19 TIMES SINCE SEP 2015. I HAVE REVIEWED MULTIPLE OF THESE CHARTS AND THE PT JARVIS HAS A WBC COUNT IN THE LOW TEENS WITH NORMAL ELECTROLYTES, BUN AND LFT'S. ON THE CHARTS I HAVE REVIEWED THE MOST FREQUENT DISCHARGE DIAGNOSIS IS GASTRITIS. HE SAYS THE ONLY PAIN MEDICATION THAT WORKS IS DILAUDID. HE INITIALLY STATED HE WAS "ALLERGIC" TO REGLAN AND COMPAZINE. HE LATER CLARIFIED THAT WHEN TAKES COMPAZINE HE EXPERIENCES DYSKINESIAS. Allergies:: Allergies Allergy/AdvReac Type Severity Reaction Status Date / Time clindamycin Allergy Verified 06/23/17 18:48 metoclopramide HCl Allergy Verified 06/23/17 18:48 [From Reglan] Penicillins [PCN] Allergy Verified 06/23/17 18:48 prochlorperazine Allergy Verified 06/23/17 18:48 [From Compazine] prochlorperazine edisylate Allergy Verified 06/23/17 18:48 [From Compazine] prochlorperazine maleate Allergy Verified 06/23/17 18:48 [From Compazine] ED Review of Systems - Review of Systems General/Constitutional: No fever, No chills, Weakness, Diaphoresis, Loss of appetite Skin: No skin lesions, No rash Head: No headache, Light headed Eyes: No loss of vision, No diplopia ENT: No earache, No sore throat Neck: No neck pain, No stiffness, No mass noted Cardio Vascular: No chest pain, No edema Pulmonary: No SOB, Cough, No sputum, No wheezing GI: Nausea, Vomiting, Diarrhea, No pain, No hematochezia, No hematemesis G/U: No dysuria, No hematuria Musculoskeletal: Back pain, Muscle pain Endocrine: No polyuria, No polydipsia Psychiatric: No prior psych history Hematopoietic: No bruising, No lymphadenopathy Allergic/Immuno: No urticaria, No angioedema Neurological: No syncope, No paresthesia, No headache, No seizure, No confusion , Vertigo ED Past Medical History - Past Medical History Social History: Non Smoker, Illicit Drug Use (. USES MARIJUANA. t), Surgical History: Pacemaker (MULTIPLE PACEMAKER REPLACEMENTS SINCE AGE 7.) Family Medical History - Family Member Mother History Unknown: Yes Ethnicity: Living Status: Still Living Hx Family Cancer: No Hx Family Coronary Artery Disease: No Hx Family Congestive Heart Failure: No Hx Family Hypertension: Yes Hx Family Stroke: No Hx Family Diabetes: Yes Hx Family Seizures: No Hx Family Dementia: No Hx Family AIDS: No Hx Family HIV: No Hx Family COPD: No Hx Family Hepatitis: No Hx Family Psychiatric Problems: No Hx Family Tuberculosis: No ED Physical Exam - Physical Examination General/Constitutional: Awake, Well-developed, well-nourished, Alert, Ambulatory Other Gen/Cons comments:: PT APPEARS TO BE IN MILD TO MODERATE DISTRESS FROM REPEATED EPISODES OF EMESIS Head: Atraumatic Eyes: Lids, conjuctiva normal, PERRL, EOMI Other Eyes comments:: The patient had Quick horizontal nystagmus on looking to both the left and the right side. Skin: Nl inspection, No rash, No skin lesions, No ecchymosis, Well hydrated, No lymphadenopathy ENMT: External ears, nose nl, Nasal exam nl, Lips, teeth, gums nl, Oropharynx nl , Tonsils nl Neck: Nontender, No JVD, No nuchal rigidity, No mass, No stridor Respiratory: Nl effort/Exclusion, Clear to Auscultation, No Wheeze/Rhonchi/Rales Cardio Vascular: RRR, No murmur, gallop, rubs, NL S1 S2 Other Cardio Vascular comments:: CURIOUSLY THE PATIENT'S FALSE RATE WAS CONSISTENTLY IN THE 60 TO 70 RANGE IS A LITTLE UNUSUAL FOR SOMEONE WITH PERSISTENT VOMITING And retching. Peripheral Pulses Were Present the In All Four Extremities.Left No Peripheral Edema Was Present. A ED Labs/Radiology/EKG Results - Lab Results Results: Laboratory Tests 06/25/17 06/25/17 14:58 14:58 WBC 9.1 D RBC 5.18 Hgb 15.1 Hct 44.8 MCV 86.5 MCH 29.2 MCHC Differential 33.7 RDW 13.6 Plt Count 117 L MPV 10.6 Neutrophils % 70.7 Lymphocytes % 20.6 Monocytes % 3.3 Eosinophils % 1.1 Basophils % 4.3 H Sodium 136 Potassium 3.5 Chloride 101 Carbon Dioxide 25.5 Anion Gap 13.0 BUN 6 L Creatinine 0.9 Est GFR ( Amer) > 60.0 Est GFR (Non-Af Amer) > 60.0 BUN/Creatinine Ratio 6.7 Glucose 94 Calcium 10.2 Total Bilirubin 1.0 AST 25 ALT 13 Alkaline Phosphatase 116 H Total Protein 7.7 Albumin 4.7 Globulin 3.0 Albumin/Globulin Ratio 1.6 Amylase 51 Lipase 12 INTERPRETATION of LAB RESULTS: the CBC was unremarkable that the way Was within the normal range and there is no evidence of anemia or hemoconcentration. Electrolytes were within the normal range and renal function was normal. Most liver function tests are normal with the exception of the alkaline phosphatase which shows a mild elevation. Both the amylase and lipase were negative in this case. NO RADIOGRAPHIC STUDIES WERE INDICATED ED Assessment - Assessment General Assessment: CASE SUMMARY: . THIS 47-YEAR-OLD MALE PRESENTS TO THE ER WITH MULTIPLE EPISODES OF VOMITING SINCE HE AWOKE THIS MORNING. HE ESTIMATES THE NUMBER TO BE SOMEWHERE CLOSE TO 25 EPISODES. THERE WAS NO HEMATEMESIS IN ANY OF TH E. HE ALSO HAD A FEW EPISODES OF DIARRHEA AND VOMITING WAS ACCOMPANIED BY SEVERE. UMBILICAL PAIN. THE PATIENT HAS NUMEROUS SIMILAR EPISODES OVER THE PAST COUPLE OF YEARS OF THE SAME SYMPTOMS FOR WHICH HE HAS RECEIVED TREATMENT IN THE ED. ON MOST OCCASIONS HIS LABORATORY STUDIES ARE UNREMARKABLE ANY RESPONSE TO FLUIDS, NARCOTICS, AND ANTIDIABETIC. PATIENT WAS TREATED WITH IV NORMAL SALINE FOR REHYDRATION INITIALLY WITH IV ZOFRAN FOR NAUSEA AND VOMITING. HIS PAIN WAS ADDRESSED WITH IV L TORADO L WITH MINIMAL IF ANY IMPROVEMENT. WITH THE PATIENT' S CONTINUED RETCHING AND VOMITING I EXPLAINED TO HIM THAT NOT HAVE THE ALLERGY TO COMPAZINE AND THAT IT WAS A SIDE EFFECT OF TAKING THE DRUG. I FURTHER ADVISED HIM THAT WE CAN AVOID THE SIDE EFFECT BUT PRETREATING HIM WITH IV BENADRYL. HE WAS GIVEN 50 MG OF IV BENADRYL L FOLLOWED BY 10 MG OF COMPAZINE BY SLOW IV PUSH. WITHIN A FEW MINUTES THE PATIENT WAS ASLEEP AND RESTING COMFORTABLY. WHEN HE AWOKE HIS ABDOMINAL PAIN AND NAUSEA WAS NO LONGER PRESENT. IS USUAL THE CASE THE PATIENT WAS DISCHARGED HOME WITH REFERRAL TO HIS PRIMARY CARE PHYSICIAN. DISCHARGED IN STABLE CONDITION. MDM DDX VOMITING AND ABDOMINAL PAIN: NOT PANCREATITIS DUE TO NORMAL AMYLASE AND LIPASE LEVELS NOT SMALL BOWEL OBSTRUCTION BASED ON THE PATIENT'S NUMEROUS FIRE EPISODES WITH NEGATIVE X-RAY STUDIES . NOT ACUTE APPENDICITIS BASED ON PHYSICAL EXAMINATION IN THE PATIENT'S HISTORY . NOT ISCHEMIC BOWEL DISEASE BASED ON THE PATIENT'S CLINICAL COURSE, NORMAL WHITE COUNT AND NO EVIDENCE FOR INTESTINAL BLEEDING. ED Septic Shock - . Is Septic Shock (SBP<90, OR Lactate>4 mmol\\L) present?: No ED Reassessment (Disposition) - Reassessment Reassessment Condition:: Improved - Diagnosis Diagnosis:: CYCLIC VOMITING DISORDE MARIJUANA USE ED Discharge Plan - Patient Disposition Admit/Discharge/Transfer: PT DISCHARGED HOME Condition at Disposition: Stable Instructions: Cyclic Vomiting Syndrome
[2017-06-25] MEDS ORDERED: Sodium Chloride 0.9% 3,000 ML IV ONE (14:41)
[2017-06-25 15:03] LABS: % EOSINOPHILS 1.1 % (0.0-5.0); EOSINOPHILE ABSOLUTE 0.1 Th/cmm (0.1-0.4)
[2017-06-25 15:07] LABS: % BASOPHILS 4.3 % (0.0-2.0); % LYMPHOCYTES 20.6 % (20.0-50.0); % MONOCYTES 3.3 % (2.0-10.0); % NEUTROPHILS 70.7 % (40.0-80.0); BASOPHILE ABSOLUTE 0.4 Th/cumm (0-0.2); HEMATOCRIT 44.8 % (41.0-60); HEMOGLOBIN 15.1 gm/dL (12-16); LYMPHOCYTE ABSOLUTE 1.9 Th/cmm (1.5-3.0); MEAN CELL VOLUME 86.5 fl (80-99); MEAN CORPUSCULAR HEMOGLOBIN 29.2 pg (26.0-30.0); MEAN CORPUSCULAR HGB CONC 33.7 pg (28.0-36.0); MEAN PLATELET VOLUME 10.6 fl; MONOCYTE ABSOLUTE 0.3 Th/cmm (0.3-1.0); NEUTROPHILE ABSOLUTE 6.4 Th/cmm (1.8-8.0); PLATELET COUNT 117 Th/cmm (150-400); RED BLOOD COUNT 5.18 Mil/cmm (4.30-5.70); RED CELL DISTRIBUTION WIDTH 13.6 % (11.5-20.0)
[2017-06-25 15:10] LABS: WHITE BLOOD COUNT 9.1 Th/cmm (4.8-10.8)
[2017-06-25 15:21] LABS: ALB/GLOB RATIO 1.6 (1.0-1.8); ALBUMIN 4.7 gm/dL (4.2-5.5); ALKALINE PHOSPHATASE 116 U/L (34-104); AMYLASE SERUM 51 U/L (29-103); BUN - UREA NITROGEN 6 mg/dL (7-25); CALCIUM SERUM 10.2 mg/dL (8.6-10.3); CARBON DIOXIDE 25.5 mEq/L (21.0-31.0); CHLORIDE 101 mEq/L (98-107); CREATININE - SERUM 0.9 mg/dL (0.7-1.3); GFR AFRICAN-AMERICAN > 60.0 ml/min (>90); GFR NON AFRICAN-AMERICAN > 60.0 ml/min; GLUCOSE 94 mg/dL (70-105); LIPASE 12 U/L (11-82); POTASSIUM SERUM 3.5 mEq/L (3.5-5.1); SGOT 25 U/L (13-39); SGPT/ALT 13 U/L (7-52); SODIUM SERUM 136 mEq/L (136-145); TOTAL PROTEIN,SERUM 7.7 gm/dL (6.0-8.3)
[2017-06-25] MEDS ORDERED: Prochlorperazine 5 mg/mL 2mL Vial IVP STA (16:27)
[2017-06-25] MEDS ORDERED: Prochlorperazine 5 mg/mL 2mL Vial ONE (16:35)
== END 2017-06-25 18:00 | disposition home or self-care (01) ==
LOC: ER 13:35
DX: G43.A0 Cyclical vomiting, in migraine, not intractable (principal); F12.90 Cannabis use, unspecified, uncomplicated; Z88.0 Allergy status to penicillin; Z88.1 Allergy status to other antibiotic agents; Z88.8 Allergy status to other drugs, medicaments and biological substances
CPT/HCPCS: 99284; 96374; 96375; 36415; 85025; 82150; 83690; 80053; J1885; J2405; J0780; J1200; J7030; Z7502

== ENCOUNTER 2017-07-20 10:01 | Emergency (ER) | payer MEDICARE, MEDICAID ==
[2017-07-20] MEDS ORDERED: Sodium Chloride 0.9% 1,000 ML IV ONE (10:08)
[2017-07-20] MEDS ORDERED: HYDROmorphone 1 mg/mL 1mL Syr IVP STA (10:21)
[2017-07-20 10:24] LABS: % BASOPHILS 0.5 % (0.0-2.0); % EOSINOPHILS 2.4 % (0.0-5.0); % MONOCYTES 3.8 % (2.0-10.0); % NEUTROPHILS 64.3 % (40.0-80.0); EOSINOPHILE ABSOLUTE 0.2 Th/cmm (0.1-0.4); HEMATOCRIT 44.8 % (41.0-60); HEMOGLOBIN 14.8 gm/dL (12-16); LYMPHOCYTE ABSOLUTE 2.1 Th/cmm (1.5-3.0); MEAN CELL VOLUME 86.1 fl (80-99); MEAN CORPUSCULAR HEMOGLOBIN 28.4 pg (26.0-30.0); MEAN PLATELET VOLUME 10.2 fl; MONOCYTE ABSOLUTE 0.3 Th/cmm (0.3-1.0); NEUTROPHILE ABSOLUTE 4.8 Th/cmm (1.8-8.0); PLATELET COUNT 115 Th/cmm (150-400); RED CELL DISTRIBUTION WIDTH 13.9 % (11.5-20.0); WHITE BLOOD COUNT 7.4 Th/cmm (4.8-10.8)
--- NOTE | 2017-07-20 10:27 | ED Physician Chart ---
ED Chief Complaint/HPI - Patient Information Date Seen:: 07/20/17 Time Seen:: 10:05 Chief Complaint:: epigastric pain History of Present Illness:: Patient developed epigastric pain about one half hour prior to admission he vomited about 5 times and had one loose stool.. Allergies:: Allergies Allergy/AdvReac Type Severity Reaction Status Date / Time clindamycin Allergy Verified 06/23/17 18:48 metoclopramide HCl Allergy Verified 06/23/17 18:48 [From Reglan] Penicillins [PCN] Allergy Verified 06/23/17 18:48 prochlorperazine Allergy Verified 06/23/17 18:48 [From Compazine] prochlorperazine edisylate Allergy Verified 06/23/17 18:48 [From Compazine] prochlorperazine maleate Allergy Verified 06/23/17 18:48 [From Compazine] Vitals:: Vital Signs - 8 hr 07/20/17 10:13 Temp 97.5 F HR 69 RR 22 BP 167/90 O2 Sat % 100 Historian:: Patient Review:: Nurse's Note Reviewed ED Review of Systems - Review of Systems General/Constitutional: No fever, No chills Skin: No skin lesions Head: No headache Eyes: No loss of vision ENT: No earache Neck: No neck pain, No swelling Cardio Vascular: No chest pain Pulmonary: No SOB GI: Nausea, Vomiting G/U: No dysuria Musculoskeletal: No bone or joint pain Endocrine: No polyuria, No polydipsia Psychiatric: No prior psych history, No depression Hematopoietic: No bruising Allergic/Immuno: No urticaria Neurological: No syncope, No focal symptoms ED Past Medical History - Past Medical History Past Medical History: Other (congenital heart disease; gastritis) Family History: None Social History: No Alcohol, Other (smokes marijuana) Surgical History: other (sternotomy for heart surgery; pacemaker) Psychiatricy History: None Family Medical History - Family Member Mother History Unknown: Yes Ethnicity: Living Status: Still Living Hx Family Cancer: No Hx Family Coronary Artery Disease: No Hx Family Congestive Heart Failure: No Hx Family Hypertension: Yes Hx Family Stroke: No Hx Family Diabetes: Yes Hx Family Seizures: No Hx Family Dementia: No Hx Family AIDS: No Hx Family HIV: No Hx Family COPD: No Hx Family Hepatitis: No Hx Family Psychiatric Problems: No Hx Family Tuberculosis: No ED Physical Exam - Physical Examination General/Constitutional: Awake, Well-developed, well-nourished, Alert, No distress Head: Atraumatic Eyes: Lids, conjuctiva normal, PERRL Skin: Nl inspection, No rash ENMT: External ears, nose nl, TM canals nl Neck: No nuchal rigidity Respiratory: Nl effort/Exclusion, Clear to Auscultation Cardio Vascular: RRR, No murmur, gallop, rubs GI: No organomegaly, No hernia, Normal BS's Other GI comments:: Upper abdominal tenderness : No CVA tenderness Extremities: Normal digits & nails Neuro/Psych: Alert/oriented ED Labs/Radiology/EKG Results - Lab Results Results: Laboratory Results - last 24 hr 07/20/17 07/20/17 10:18 10:18 WBC 7.4 RBC 5.20 Hgb 14.8 Hct 44.8 MCV 86.1 MCH 28.4 MCHC Differential 33.0 RDW 13.9 Plt Count 115 L MPV 10.2 Neutrophils % 64.3 Lymphocytes % 29.0 Monocytes % 3.8 Eosinophils % 2.4 Basophils % 0.5 Sodium 137 Potassium 3.5 Chloride 101 Carbon Dioxide 28.8 Anion Gap 10.7 BUN 4 L Creatinine 0.8 Est GFR ( Amer) > 60.0 Est GFR (Non-Af Amer) > 60.0 BUN/Creatinine Ratio 5.0 Glucose 85 Calcium 9.6 Magnesium 1.7 L Lipase 39 ED Assessment - Assessment General Assessment: Patient is pain-free and has no nausea at 1140. ED Septic Shock - . Is Septic Shock (SBP<90, OR Lactate>4 mmol\L) present?: No - <6hrs of presentation: Vital Signs: Vital Signs - 8 hr 07/20/17 10:13 Temp 97.5 F HR 69 RR 22 BP 167/90 O2 Sat % 100 ED Reassessment (Disposition) - Reassessment Reassessment Condition:: Improved - Diagnosis Diagnosis:: Gastritis; hypomagnesemia - Aftercare/Follow up Instructions Aftercare/Follow-Up Instructions:: Refer to Discharge Instructions - Patient Disposition Discharge/Transfer:: Home Condition at Disposition:: Stable, Improved
[2017-07-20] MEDS ORDERED: HYDROmorphone 1 mg/mL 1mL Syr ONE (10:28)
[2017-07-20 10:52] LABS: ANION GAP 10.7 (7.0-16.0); BUN - UREA NITROGEN 4 mg/dL (7-25); CALCIUM SERUM 9.6 mg/dL (8.6-10.3); CARBON DIOXIDE 28.8 mEq/L (21.0-31.0); CHLORIDE 101 mEq/L (98-107); CREATININE - SERUM 0.8 mg/dL (0.7-1.3); GFR AFRICAN-AMERICAN > 60.0 ml/min (>90); GFR NON AFRICAN-AMERICAN > 60.0 ml/min; GLUCOSE 85 mg/dL (70-105); LIPASE 39 U/L (11-82); MAGNESIUM 1.7 mg/dL (1.9-2.7); POTASSIUM SERUM 3.5 mEq/L (3.5-5.1); SODIUM SERUM 137 mEq/L (136-145)
[2017-07-20] MEDS ORDERED: Mag Sulfate 2gm/50mL Premix 2 GM/50 ML BAG IV ONE ×2 (11:26→11:51)
== END 2017-07-20 13:15 | disposition home or self-care (01) ==
LOC: ER 10:01
DX: K29.70 Gastritis, unspecified, without bleeding (principal); E83.42 Hypomagnesemia
CPT/HCPCS: 99284; 96365; 96375; 96376; 36415; 85025; 83690; 83735; 80048; J3475; J2405 ×2; J1170; J7030; Z7502

== ENCOUNTER 2017-07-22 09:37 | Emergency (ER) | payer MEDICARE, MEDICAID ==
--- NOTE | 2017-07-22 09:50 | ED Physician Chart ---
ED Chief Complaint/HPI - Patient Information Date Seen:: 07/22/17 Time Seen:: 09:49 Chief Complaint:: Epigastric pain History of Present Illness:: 47 yo male had history of gastritis with frequent epigastric pain. He developed epigastric pain a few hours ago after woke up. He had nausea and vomiting. He denied diarrhea except soft stool. Patient had multiple ER visits and the pain was relieved with or without dilaudid despite the request by the patient at almost all visits. He reported an appointment with GI specialist on 07/28/17. Allergies:: Allergies Allergy/AdvReac Type Severity Reaction Status Date / Time clindamycin Allergy Verified 06/23/17 18:48 metoclopramide HCl Allergy Verified 06/23/17 18:48 [From Reglan] Penicillins [PCN] Allergy Verified 06/23/17 18:48 prochlorperazine Allergy Verified 06/23/17 18:48 [From Compazine] prochlorperazine edisylate Allergy Verified 06/23/17 18:48 [From Compazine] prochlorperazine maleate Allergy Verified 06/23/17 18:48 [From Compazine] ED Review of Systems - Review of Systems General/Constitutional: No fever Skin: No rash Head: No headache Eyes: No pain ENT: No nasal drainage Neck: No neck pain Cardio Vascular: No chest pain Pulmonary: No SOB GI: Nausea, Vomiting Musculoskeletal: Back pain Neurological: Paresthesia ED Past Medical History - Past Medical History Past Medical History: HTN, Other (gastritis) Social History: Smoker, No Alcohol, Illicit Drug Use (marijuana) Surgical History: Pacemaker, 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) Family Medical History - Family Member Mother History Unknown: Yes Ethnicity: Living Status: Still Living Hx Family Cancer: No Hx Family Coronary Artery Disease: No Hx Family Congestive Heart Failure: No Hx Family Hypertension: Yes Hx Family Stroke: No Hx Family Diabetes: Yes Hx Family Seizures: No Hx Family Dementia: No Hx Family AIDS: No Hx Family HIV: No Hx Family COPD: No Hx Family Hepatitis: No Hx Family Psychiatric Problems: No Hx Family Tuberculosis: No ED Physical Exam - Physical Examination General/Constitutional: Awake, Alert Head: Atraumatic Eyes: PERRL Skin: No ecchymosis ENMT: External ears, nose nl Neck: No nuchal rigidity Respiratory: Clear to Auscultation Cardio Vascular: No murmur, gallop, rubs, NL S1 S2 Other Cardio Vascular comments:: irregular rhythm Other GI comments:: Soft, non-distended, epigastric tenderness, hypoactive bowel sound Extremities: normal strength in all extremities Neuro/Psych: No focal deficits ED Labs/Radiology/EKG Results - EKG Interpretations EKG Time:: 10:19 Rate & Rhythm: Afib and ventricular-paced rhythm ED Assessment - Assessment General Assessment: Gastritis Hypokalemia Assessment/Comments:: CBC, CMP UA, urine drug screen Zofran Pantoprazole KCL 20mEq IV D/c home F/u PCP and GI specialist ED Septic Shock - . Is Septic Shock (SBP<90, OR Lactate>4 mmol\L) present?: No ED Reassessment (Disposition) - Reassessment Reassessment Condition:: Improved - Patient Disposition Discharge/Transfer:: Home ED Discharge Plan - Patient Disposition Admit/Discharge/Transfer: PT DISCHARGED HOME Condition at Disposition: Stable Prescriptions: Ondansetron [Zofran Odt] 4 mg PO Q12H PRN #14 odt PRN Reason: Nausea / Vomiting Instructions: Cyclic Vomiting Syndrome
[2017-07-22 10:36] LABS: % BASOPHILS 0.3 % (0.0-2.0); % EOSINOPHILS 1.6 % (0.0-5.0); % LYMPHOCYTES 19.3 % (20.0-50.0); % MONOCYTES 2.2 % (2.0-10.0); % NEUTROPHILS 76.6 % (40.0-80.0); EOSINOPHILE ABSOLUTE 0.1 Th/cmm (0.1-0.4); HEMATOCRIT 45.5 % (41.0-60); LYMPHOCYTE ABSOLUTE 1.6 Th/cmm (1.5-3.0); MEAN CELL VOLUME 87.5 fl (80-99); MEAN CORPUSCULAR HEMOGLOBIN 28.9 pg (26.0-30.0); MEAN PLATELET VOLUME 10.7 fl; MONOCYTE ABSOLUTE 0.2 Th/cmm (0.3-1.0); NEUTROPHILE ABSOLUTE 6.2 Th/cmm (1.8-8.0); PLATELET COUNT 98 Th/cmm (150-400); RED BLOOD COUNT 5.19 Mil/cmm (4.30-5.70); RED CELL DISTRIBUTION WIDTH 14.1 % (11.5-20.0); WHITE BLOOD COUNT 8.1 Th/cmm (4.8-10.8)
[2017-07-22 10:56] LABS: ALB/GLOB RATIO 2.1 (1.0-1.8); ALKALINE PHOSPHATASE 126 U/L (34-104); AMYLASE SERUM 44 U/L (29-103); ANION GAP 12.3 (7.0-16.0); BILIRUBIN,TOTAL 0.8 mg/dL (0.3-1.0); BUN - UREA NITROGEN 4 mg/dL (7-25); CALCIUM SERUM 9.8 mg/dL (8.6-10.3); CARBON DIOXIDE 28.8 mEq/L (21.0-31.0); CHLORIDE 101 mEq/L (98-107); CREATININE - SERUM 0.8 mg/dL (0.7-1.3); GFR AFRICAN-AMERICAN > 60.0 ml/min (>90); GFR NON AFRICAN-AMERICAN > 60.0 ml/min; GLUCOSE 98 mg/dL (70-105); LIPASE 13 U/L (11-82); POTASSIUM SERUM 3.1 mEq/L (3.5-5.1); SGOT 26 U/L (13-39); SGPT/ALT 13 U/L (7-52); SODIUM SERUM 139 mEq/L (136-145); TOTAL PROTEIN,SERUM 7.4 gm/dL (6.0-8.3)
[2017-07-22] MEDS ORDERED: KCL 20mEq/100mL Premix 20 MEQ/100 ML PIGGYBACK IV ONE (11:39)
[2017-07-22 11:49] LABS: URINE MICROSCOPIC INDICATED? YES; URINE SOURCE RANDOM
[2017-07-22 12:01] LABS: URINE BILIRUBIN NEGATIVE (NEGATIVE); URINE BLOOD NEGATIVE (NEGATIVE); URINE GLUCOSE (UA) NEGATIVE (NEGATIVE); URINE KETONE NEGATIVE (NEGATIVE); URINE LEUKOCYTE ESTERASE NEGATIVE (NEGATIVE); URINE NITRATE NEGATIVE (NEGATIVE); URINE PROTEIN NEGATIVE (NEGATIVE); URINE UROBILINOGEN 0.2 E.U./dL (0.2 - 1.0)
[2017-07-22 12:14] LABS: URINE CLARITY CLEAR (CLEAR); URINE COLOR YELLOW
[2017-07-22 12:15] LABS: URINE BACTERIA NONE SEEN /hpf (NONE SEEN); URINE EPITHELIAL CELLS NONE SEEN /lpf (FEW); URINE RBC NONE SEEN /hpf (0-5); URINE WBC NONE SEEN /hpf (0-5)
[2017-07-22 12:30] LABS: AMPHETAMINE URINE NEGATIVE (NEGATIVE); BARBITURATES URINE NEGATIVE (NEGATIVE); BENZODIAZEPINES QUAL URINE NEGATIVE (NEGATIVE); CANNABINOID THC POSITIVE (NEGATIVE); COCAINE METABOLITE QUAL URINE NEGATIVE (NEGATIVE); METHADONE URINE NEGATIVE (NEGATIVE); METHAMPHETAMINES QUAL URINE NEGATIVE (NEGATIVE); OPIATES (MORPHINE) QUAL. URINE NEGATIVE (NEGATIVE); PHENCYCLIDINE (PCP) URINE NEGATIVE (NEGATIVE); TRICYCLICS (TCA) QUAL. URINE NEGATIVE (NEGATIVE)
[2017-07-23] MEDS ORDERED: Pantoprazole 40 mg EC Tab PO SCH (09:00)
== END 2017-07-22 15:02 | disposition home or self-care (01) ==
LOC: ER 09:37
DX: K29.70 Gastritis, unspecified, without bleeding (principal); I10 Essential (primary) hypertension; F17.200 Nicotine dependence, unspecified, uncomplicated
CPT/HCPCS: 99285; 96361; 96374; 96375; 93005; 36415; 80307; 85025; 81001; 82150; 83690; 83735; 80053; C9113 ×2; J1885; J2405 ×2; J3480

== ENCOUNTER 2017-09-09 09:19 | Emergency (ER) | payer MEDICARE, MEDICAID ==
--- NOTE | 2017-09-09 10:11 | ED Physician Chart ---
ED Chief Complaint/HPI - Patient Information Date Seen:: 09/09/17 Time Seen:: 10:09 Chief Complaint:: Abdominal pain History of Present Illness:: 47 yo male had abdominal pain, nausea and vomiting after eating chicken 2 days ago. The abdominal pain became worse and patient came to ER. The patient reported that he saw GI specialist a month ago and was referred to a surgeon due to hiatal hernia. 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 Allergies:: Allergies Allergy/AdvReac Type Severity Reaction Status Date / Time clindamycin Allergy Verified 06/23/17 18:48 metoclopramide HCl Allergy Verified 06/23/17 18:48 [From Reglan] Penicillins [PCN] Allergy Verified 06/23/17 18:48 prochlorperazine Allergy Verified 06/23/17 18:48 [From Compazine] prochlorperazine edisylate Allergy Verified 06/23/17 18:48 [From Compazine] prochlorperazine maleate Allergy Verified 06/23/17 18:48 [From Compazine] Vitals:: Vital Signs - 8 hr 09/09/17 09:34 Temp 96.6 F HR 71 RR 16 BP 185/110 O2 Sat % 100 ED Review of Systems - Review of Systems General/Constitutional: No fever Skin: No bruising Head: No headache ENT: No nasal drainage Neck: No neck pain Pulmonary: No SOB GI: Nausea, Vomiting, Pain Musculoskeletal: No bone or joint pain Neurological: No focal symptoms ED Past Medical History - Past Medical History Past Medical History: HTN, Other (gastritis) Social History: Smoker, Alcohol, Illicit Drug Use (marijuana) Surgical History: Pacemaker, other (open heart surgery for congenital heart disease) Family Medical History - Family Member Mother History Unknown: Yes Ethnicity: Living Status: Still Living Hx Family Cancer: No Hx Family Coronary Artery Disease: No Hx Family Congestive Heart Failure: No Hx Family Hypertension: Yes Hx Family Stroke: No Hx Family Diabetes: Yes Hx Family Seizures: No Hx Family Dementia: No Hx Family AIDS: No Hx Family HIV: No Hx Family COPD: No Hx Family Hepatitis: No Hx Family Psychiatric Problems: No Hx Family Tuberculosis: No ED Physical Exam - Physical Examination General/Constitutional: Awake, Alert Head: Atraumatic Eyes: PERRL Skin: No skin lesions ENMT: Nasal exam nl Neck: No nuchal rigidity Respiratory: Clear to Auscultation, No Wheeze/Rhonchi/Rales Cardio Vascular: RRR, No murmur, gallop, rubs, NL S1 S2 Other GI comments:: Diffuse tenderness, soft, no guarding, no rebounding tenderness Extremities: normal strength in all extremities Neuro/Psych: No focal deficits ED Assessment - Assessment General Assessment: Gastritis UTI Substance abuse Hypertension Assessment/Comments:: CBC, CMP UA, urine drug screen Pantoprazil PO Maalox Lidocaine Bactrim DS 1 tab PO x 1 Lisinopril 10mg PO x 1 D/c home Bactrim DS Bid #6 Lisinopril 10mg qd #30 F/u 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 Is Septic Shock (SBP<90, OR Lactate>4 mmol\L) present?: No - <6hrs of presentation: Vital Signs: Vital Signs - 8 hr 09/09/17 09:34 Temp 96.6 F HR 71 RR 16 BP 185/110 O2 Sat % 100 ED Reassessment (Disposition) - Reassessment Reassessment Condition:: Improved - Patient Disposition Discharge/Transfer:: Home ED Discharge Plan - Patient Disposition Instructions: Gastritis, Adult, [id number]
[2017-09-09 10:33] LABS: % BASOPHILS 0.1 % (0.0-2.0); % EOSINOPHILS 1.3 % (0.0-5.0); % LYMPHOCYTES 26.2 % (20.0-50.0); % MONOCYTES 5.4 % (2.0-10.0); EOSINOPHILE ABSOLUTE 0.1 Th/cmm (0.1-0.4); LYMPHOCYTE ABSOLUTE 2.4 Th/cmm (1.5-3.0); MEAN CELL VOLUME 86.3 fl (80-99); MEAN CORPUSCULAR HEMOGLOBIN 29.4 pg (26.0-30.0); MONOCYTE ABSOLUTE 0.5 Th/cmm (0.3-1.0); NEUTROPHILE ABSOLUTE 6.2 Th/cmm (1.8-8.0); PLATELET COUNT 117 Th/cmm (150-400); RED BLOOD COUNT 5.45 Mil/cmm (4.30-5.70); RED CELL DISTRIBUTION WIDTH 13.3 % (11.5-20.0); WHITE BLOOD COUNT 9.2 Th/cmm (4.8-10.8)
[2017-09-09] MEDS ORDERED: Maalox 30 mL Cup PO ONE (10:34)
[2017-09-09] MEDS ORDERED: Pantoprazole 40 mg EC Tab PO STA (10:37)
[2017-09-09] MEDS ORDERED: Maalox 30 mL Cup ONE (10:39)
[2017-09-09] MEDS ORDERED: Pantoprazole 40 mg EC Tab PO ONE (10:39)
[2017-09-09 10:50] LABS: ALB/GLOB RATIO 1.7 (1.0-1.8); ALBUMIN 4.8 gm/dL (4.2-5.5); ALKALINE PHOSPHATASE 117 U/L (34-104); BILIRUBIN,TOTAL 1.1 mg/dL (0.3-1.0); BUN - UREA NITROGEN 10 mg/dL (7-25); CALCIUM SERUM 10.5 mg/dL (8.6-10.3); CARBON DIOXIDE 23.8 mEq/L (21.0-31.0); CREATININE - SERUM 0.8 mg/dL (0.7-1.3); GFR AFRICAN-AMERICAN > 60.0 ml/min (>90); GFR NON AFRICAN-AMERICAN > 60.0 ml/min; GLUCOSE 99 mg/dL (70-105); SGOT 27 U/L (13-39); SGPT/ALT 13 U/L (7-52); TOTAL PROTEIN,SERUM 7.6 gm/dL (6.0-8.3)
[2017-09-09 11:24] LABS: URINE MICROSCOPIC INDICATED? YES; URINE SOURCE RANDOM
[2017-09-09 11:24] LABS: POTASSIUM SERUM 3.4 mEq/L (3.5-5.1); SODIUM SERUM 136 mEq/L (136-145)
[2017-09-09 11:25] LABS: ANION GAP 15.6 (7.0-16.0); CHLORIDE 100 mEq/L (98-107)
[2017-09-09 11:33] LABS: URINE BILIRUBIN MODERATE (NEGATIVE); URINE BLOOD NEGATIVE (NEGATIVE); URINE GLUCOSE (UA) NEGATIVE (NEGATIVE); URINE KETONE 15 mg/dL (NEGATIVE); URINE LEUKOCYTE ESTERASE TRACE (NEGATIVE); URINE NITRATE NEGATIVE (NEGATIVE); URINE PH 7.5 (4.6 - 8.0); URINE PROTEIN 30 mg/dL (NEGATIVE)
[2017-09-09 11:38] LABS: URINE CLARITY HAZY (CLEAR); URINE COLOR YELLOW
[2017-09-09 11:42] LABS: URINE BACTERIA FEW /hpf (NONE SEEN); URINE EPITHELIAL CELLS MODERATE /lpf (FEW); URINE RBC 0-2 /hpf (0-5)
[2017-09-09 11:47] LABS: AMPHETAMINE URINE NEGATIVE (NEGATIVE); BARBITURATES URINE NEGATIVE (NEGATIVE); BENZODIAZEPINES QUAL URINE NEGATIVE (NEGATIVE); COCAINE METABOLITE QUAL URINE NEGATIVE (NEGATIVE); METHADONE URINE NEGATIVE (NEGATIVE); METHAMPHETAMINES QUAL URINE NEGATIVE (NEGATIVE); OPIATES (MORPHINE) QUAL. URINE NEGATIVE (NEGATIVE); PHENCYCLIDINE (PCP) URINE NEGATIVE (NEGATIVE)
[2017-09-09] MEDS ORDERED: Sulfamethoxazole/TMP 800/160mg Tab PO ONE (11:47)
[2017-09-09 11:51] LABS: CANNABINOID THC POSITIVE (NEGATIVE); TRICYCLICS (TCA) QUAL. URINE POSITIVE (NEGATIVE)
[2017-09-09] MEDS ORDERED: Sulfamethoxazole/TMP 800/160mg Tab ONE (11:52)
== END 2017-09-09 12:00 | disposition home or self-care (01) ==
LOC: ER 09:19
DX: K29.70 Gastritis, unspecified, without bleeding (principal); N39.0 Urinary tract infection, site not specified; I10 Essential (primary) hypertension; F17.200 Nicotine dependence, unspecified, uncomplicated
CPT/HCPCS: 99284; 36415; 80307; 85025; 83690; 80053; 81001; Q0162; C9113; Z7502; Z7610

== ENCOUNTER 2017-09-17 08:12 | Emergency (ER) | payer MEDICARE, MEDICAID ==
--- NOTE | 2017-09-17 08:36 | ED Physician Chart ---
ED Chief Complaint/HPI - Patient Information Date Seen:: 09/17/17 Time Seen:: 08:30 Chief Complaint:: BILATERAL SKIN LESIONS TIPS OF THUMB AND INDEX FINGER FINGER History of Present Illness:: This 47-year-old male was placed on a course of Bactrim which started 4 days ago. 3 days ago the patient broke out with a rash involving the tips of his index and thumb and great toe bilaterally. The rash is painful at the tip of his index and thumb and great toe. There are no relieving or exacerbating factors. He denies any associated fever, chills or diaphoresis. Allergies:: Allergies Allergy/AdvReac Type Severity Reaction Status Date / Time clindamycin Allergy Verified 06/23/17 18:48 metoclopramide HCl Allergy Verified 06/23/17 18:48 [From Reglan] Penicillins [PCN] Allergy Verified 06/23/17 18:48 prochlorperazine Allergy Verified 06/23/17 18:48 [From Compazine] prochlorperazine edisylate Allergy Verified 06/23/17 18:48 [From Compazine] prochlorperazine maleate Allergy Verified 06/23/17 18:48 [From Compazine] Historian:: Patient ED Review of Systems - Review of Systems General/Constitutional: No fever, No chills, No weakness, No edema, No loss of appetite Skin: Skin lesions (as noted in the HPI the patient has dermatologic findings on the tips of his thumb and index finger and great toe.), Rash Head: No headache, No light-headedness Eyes: No loss of vision, No diplopia ENT: No earache, No sore throat, No tinnitus Neck: No neck pain, No thyromegaly, No mass noted ED Past Medical History - Past Medical History Past Medical History: Other (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 Currently the patient still has a right sided pacemaker. ) Social History: Smoker, Alcohol, Illicit Drug Use (patient is trying to get off taking marijuana.), , Other (patient is fully disabled secondary to his heart problems and addiction problems.) Family Medical History - Family Member Mother History Unknown: Yes Ethnicity: Living Status: Still Living Hx Family Cancer: No Hx Family Coronary Artery Disease: No Hx Family Congestive Heart Failure: No Hx Family Hypertension: Yes Hx Family Stroke: No Hx Family Diabetes: Yes Hx Family Seizures: No Hx Family Dementia: No Hx Family AIDS: No Hx Family HIV: No Hx Family COPD: No Hx Family Hepatitis: No Hx Family Psychiatric Problems: No Hx Family Tuberculosis: No ED Physical Exam - Physical Examination General/Constitutional: Awake, Well-developed, well-nourished, Alert, No distress, Non-toxic appearing, Ambulatory Head: Atraumatic Eyes: Lids, conjuctiva normal, PERRL, EOMI Skin: No ecchymosis, Well hydrated ENMT: External ears, nose nl, Nasal exam nl Other ENMT comments:: The patient has very small laceration like lesions on the tips of his thumb and index finger and great toes. They do not appear acutely infected. 2 of the lesions have a vesicular component to them. His great toe on the left side is missing the nail and appears to have a fungal component to it. The total lesions have been present for 2-1/2-3 years. The patient's tongue is colored red from eating strawberry candies. Posterior pharynx is noninflamed. No exudates or peritonsillar swelling. Neck: Nontender, No JVD, No nuchal rigidity, No mass, No stridor Respiratory: Nl effort/Exclusion, Clear to Auscultation, No Wheeze/Rhonchi/Rales Other Cardio Vascular comments:: No S3 or S4. Very faint 2/6 systolic ejection murmur in the left second intercostal space. No radiation of the murmur. Good peripheral pulses in all 4 extremities. GI: No organomegaly Other GI comments:: Patient has incisional hernias in the anterior abdomen. : No CVA tenderness Extremities: normal strength in all extremities, No edema
[2017-09-17 09:11] LABS: URINE MICROSCOPIC INDICATED? YES; URINE SOURCE RANDOM
[2017-09-17 09:22] LABS: URINE BILIRUBIN NEGATIVE (NEGATIVE); URINE BLOOD NEGATIVE (NEGATIVE); URINE GLUCOSE (UA) NEGATIVE (NEGATIVE); URINE KETONE NEGATIVE (NEGATIVE); URINE LEUKOCYTE ESTERASE NEGATIVE (NEGATIVE); URINE NITRATE NEGATIVE (NEGATIVE); URINE PROTEIN NEGATIVE (NEGATIVE); URINE UROBILINOGEN 0.2 E.U./dL (0.2 - 1.0)
[2017-09-17 09:24] LABS: URINE CLARITY CLEAR (CLEAR); URINE COLOR YELLOW
[2017-09-17 09:28] LABS: URINE EPITHELIAL CELLS OCCASIONAL /lpf (FEW); URINE WBC 0-2 /hpf (0-5)
[2017-09-17 09:29] LABS: URINE BACTERIA OCCASIONAL /hpf (NONE SEEN)
[2017-09-17 09:35] LABS: % BASOPHILS 0.4 % (0.0-2.0); % EOSINOPHILS 2.7 % (0.0-5.0); % LYMPHOCYTES 27.8 % (20.0-50.0); % MONOCYTES 5.3 % (2.0-10.0); % NEUTROPHILS 63.8 % (40.0-80.0); EOSINOPHILE ABSOLUTE 0.1 Th/cmm (0.1-0.4); HEMATOCRIT 40.2 % (41.0-60); HEMOGLOBIN 13.5 gm/dL (12-16); LYMPHOCYTE ABSOLUTE 1.5 Th/cmm (1.5-3.0); MEAN CELL VOLUME 87.5 fl (80-99); MEAN CORPUSCULAR HEMOGLOBIN 29.4 pg (26.0-30.0); MEAN CORPUSCULAR HGB CONC 33.6 pg (28.0-36.0); MEAN PLATELET VOLUME 9.4 fl; MONOCYTE ABSOLUTE 0.3 Th/cmm (0.3-1.0); NEUTROPHILE ABSOLUTE 3.4 Th/cmm (1.8-8.0); PLATELET COUNT 79 Th/cmm (150-400); RED BLOOD COUNT 4.59 Mil/cmm (4.30-5.70); RED CELL DISTRIBUTION WIDTH 13.9 % (11.5-20.0); WHITE BLOOD COUNT 5.3 Th/cmm (4.8-10.8)
[2017-09-17 09:36] LABS: ANION GAP 9.1 (7.0-16.0); BUN - UREA NITROGEN 5 mg/dL (7-25); CALCIUM SERUM 9.6 mg/dL (8.6-10.3); CARBON DIOXIDE 29.2 mEq/L (21.0-31.0); CHLORIDE 103 mEq/L (98-107); CREATININE - SERUM 0.9 mg/dL (0.7-1.3); GFR AFRICAN-AMERICAN > 60.0 ml/min (>90); GFR NON AFRICAN-AMERICAN > 60.0 ml/min; GLUCOSE 90 mg/dL (70-105); POTASSIUM SERUM 4.3 mEq/L (3.5-5.1); SODIUM SERUM 137 mEq/L (136-145)
== END 2017-09-17 09:58 | disposition home or self-care (01) ==
LOC: ER 08:12
DX: R21 Rash and other nonspecific skin eruption (principal); F17.200 Nicotine dependence, unspecified, uncomplicated; Z88.1 Allergy status to other antibiotic agents; Z88.8 Allergy status to other drugs, medicaments and biological substances
CPT/HCPCS: 36415-UA; 80048-TC; 81001-TC; 85025-TC; Z7502

== ENCOUNTER 2018-01-28 07:02 | Emergency (ER) | payer MEDICARE, MEDICAID ==
[2018-01-28 07:32] LABS: % BASOPHILS 0.3 % (0.0-2.0); % EOSINOPHILS 3.3 % (0.0-5.0); % LYMPHOCYTES 33.6 % (20.0-50.0); % NEUTROPHILS 56.8 % (40.0-80.0); EOSINOPHILE ABSOLUTE 0.3 Th/cmm (0.1-0.4); HEMATOCRIT 41.6 % (41.0-60); HEMOGLOBIN 14.1 gm/dL (12-16); LYMPHOCYTE ABSOLUTE 2.7 Th/cmm (1.5-3.0); MEAN CELL VOLUME 86.8 fl (80-99); MEAN CORPUSCULAR HEMOGLOBIN 29.5 pg (26.0-30.0); MEAN PLATELET VOLUME 9.6 fl; MONOCYTE ABSOLUTE 0.5 Th/cmm (0.3-1.0); NEUTROPHILE ABSOLUTE 4.4 Th/cmm (1.8-8.0); PLATELET COUNT 87 Th/cmm (150-400); RED BLOOD COUNT 4.79 Mil/cmm (4.30-5.70); RED CELL DISTRIBUTION WIDTH 13.9 % (11.5-20.0); WHITE BLOOD COUNT 7.9 Th/cmm (4.8-10.8)
[2018-01-28 07:46] LABS: PROTHROMBIN TIME (TEST) 10.4 SECONDS (9.5-11.5)
[2018-01-28 07:48] LABS: ALB/GLOB RATIO 1.8 (1.0-1.8); ALBUMIN 4.5 gm/dL (4.2-5.5); ALKALINE PHOSPHATASE 96 U/L (34-104); ANION GAP 13.1 (7.0-16.0); BILIRUBIN,TOTAL 0.7 mg/dL (0.3-1.0); CALCIUM SERUM 9.4 mg/dL (8.6-10.3); CARBON DIOXIDE 25.4 mEq/L (21.0-31.0); CHLORIDE 103 mEq/L (98-107); CREATININE - SERUM 0.8 mg/dL (0.7-1.3); GFR AFRICAN-AMERICAN > 60.0 ml/min (>90); GFR NON AFRICAN-AMERICAN > 60.0 ml/min; GLUCOSE 93 mg/dL (70-105); POTASSIUM SERUM 3.5 mEq/L (3.5-5.1); SGOT 26 U/L (13-39); SGPT/ALT 14 U/L (7-52); SODIUM SERUM 138 mEq/L (136-145)
[2018-01-28 07:53] LABS: BUN - UREA NITROGEN < 2 mg/dL (7-25)
--- NOTE | 2018-01-28 08:01 | ED Physician Chart ---
ED Chief Complaint/HPI - Patient Information Date Seen:: 01/28/18 Time Seen:: 07:36 Chief Complaint:: abdominal pain History of Present Illness:: this is a 47 yo male with 10/10 epigastric pain associated with nausea and vomiting. He has been here about twenty times over the last few years with the same complaints. The patient is also stating that he has diarrhea since eating some bad food. He states that his pain is radiating to his back. a review of his last 14 visits were found to be benign. Allergies:: Allergies Allergy/AdvReac Type Severity Reaction Status Date / Time clindamycin Allergy Verified 09/17/17 08:32 metoclopramide HCl Allergy Verified 09/17/17 08:32 [From Reglan] Penicillins [PCN] Allergy Verified 09/17/17 08:32 prochlorperazine Allergy Verified 09/17/17 08:32 [From Compazine] prochlorperazine edisylate Allergy Verified 09/17/17 08:32 [From Compazine] prochlorperazine maleate Allergy Verified 09/17/17 08:32 [From Compazine] Vitals:: Vital Signs - 8 hr 01/28/18 07:19 Temp 97.5 F HR 74 RR 23 BP 175/94 O2 Sat % 100 Historian:: Patient Review:: Nurse's Note Reviewed ED Review of Systems - Review of Systems General/Constitutional: No fever, No chills, No weight loss, No weakness, No diaphoresis, No edema, No loss of appetite Skin: No skin lesions, No rash, No bruising Head: No headache, No light-headedness Eyes: No loss of vision, No pain, No diplopia ENT: No earache, No nasal drainage, No sore throat, No tinnitus Neck: No neck pain, No swelling, No thyromegaly, No stiffness, No mass noted Cardio Vascular: No chest pain, No palpitations, No PND, No orthopnea, No edema Pulmonary: No SOB, No cough, No sputum, No wheezing GI: Nausea, Vomiting, Diarrhea, Pain, No melena, No hematochezia, No constipation, No hematemesis G/U: No dysuria, No frequency, No hematuria Musculoskeletal: No bone or joint pain, No back pain, No muscle pain Endocrine: No polyuria, No polydipsia Psychiatric: No prior psych history, No depression, No anxiety, No suicidal ideation Hematopoietic: No bruising, No lymphadenopathy Allergic/Immuno: No urticaria, No angioedema Neurological: No syncope, No focal symptoms, No weakness, No paresthesia, No headache, No seizure, No dizziness, No confusion, No vertigo ED Past Medical History - Past Medical History Obtainable: Yes Past Medical History: HTN, CAD, Other (depression) Family History: None Social History: Smoker, Alcohol, Illicit Drug Use, Single Surgical History: Pacemaker, other (congenital heart surgery) Family Medical History - Family Member Mother History Unknown: Yes Ethnicity: Living Status: Still Living Hx Family Cancer: No Hx Family Coronary Artery Disease: No Hx Family Congestive Heart Failure: No Hx Family Hypertension: Yes Hx Family Stroke: No Hx Family Diabetes: Yes Hx Family Seizures: No Hx Family Dementia: No Hx Family AIDS: No Hx Family HIV: No Hx Family COPD: No Hx Family Hepatitis: No Hx Family Psychiatric Problems: No Hx Family Tuberculosis: No ED Physical Exam - Physical Examination General/Constitutional: Awake, Well-developed, well-nourished, Alert, No distress, GCS 15, Non-toxic appearing, Ambulatory Head: Atraumatic Eyes: Lids, conjuctiva normal, PERRL, EOMI Skin: Nl inspection, No rash, No skin lesions, No ecchymosis, Well hydrated, No lymphadenopathy ENMT: External ears, nose nl, Nasal exam nl, Lips, teeth, gums nl Neck: Nontender, Full ROM w/o pain, No JVD, No nuchal rigidity, No bruit, No mass, No stridor Respiratory: Nl effort/Exclusion, Clear to Auscultation, No Wheeze/Rhonchi/Rales Cardio Vascular: RRR, No murmur, gallop, rubs, NL S1 S2 GI: No tenderness/rebounding/guarding (difuse minimal tenderness of the abdomen) , No organomegaly, No hernia, Normal BS's, Nondistended, No mass/bruits, No McBurney tenderness : No CVA tenderness Extremities: No tenderness or effusion, Full ROM, normal strength in all extremities, No edema, Normal digits & nails Neuro/Psych: Alert/oriented, DTR's symmetric, Normal sensory exam, Normal motor strength, Judgement/insight normal, Mood normal, Normal gait, No focal deficits Misc: Normal back, No paraspinal tenderness ED Labs/Radiology/EKG Results - Lab Results Results: Laboratory Tests 01/28/18 07:20 WBC 7.9 RBC 4.79 Hgb 14.1 Hct 41.6 MCV 86.8 MCH 29.5 MCHC Differential 34.0 RDW 13.9 Plt Count 87 L MPV 9.6 Neutrophils % 56.8 Lymphocytes % 33.6 Monocytes % 6.0 Eosinophils % 3.3 Basophils % 0.3 - EKG Interpretations EKG Time:: 07:24 Rate & Rhythm: sinus with occasional pvcs Davy: left axis Intervals: there are occasional runs of atrial fib noted on other old ekg test ED Assessment - Assessment General Assessment: abdominal pain ED Septic Shock - . Is Septic Shock (SBP<90, OR Lactate>4 mmol\L) present?: No - <6hrs of presentation: Vital Signs: Vital Signs - 8 hr 01/28/18 07:19 Temp 97.5 F HR 74 RR 23 BP 175/94 O2 Sat % 100 ED Reassessment (Disposition) - Reassessment Reassessment Condition:: Improved - Diagnosis Diagnosis:: acute abdominal pain - Aftercare/Follow up Instructions Aftercare/Follow-Up Instructions:: Counseled pt regarding lab results/diagnosis & need follow up, Refer to Discharge Instructions, Counseled pt & family regarding lab results/diagnosis & need follow up - Patient Disposition Discharge/Transfer:: Against Medical Advice (the patient refused to sign the ama form and only wanted pain meds. he refused to get a CT scan of the abdomen.) Condition at Disposition:: Stable, Improved
[2018-01-28 08:15] LABS: URINE SOURCE CLEAN C
[2018-01-28 08:18] LABS: URINE BILIRUBIN NEGATIVE (NEGATIVE); URINE BLOOD NEGATIVE (NEGATIVE); URINE GLUCOSE (UA) NEGATIVE (NEGATIVE); URINE KETONE NEGATIVE (NEGATIVE); URINE LEUKOCYTE ESTERASE NEGATIVE (NEGATIVE); URINE NITRATE NEGATIVE (NEGATIVE); URINE PROTEIN NEGATIVE (NEGATIVE); URINE UROBILINOGEN 0.2 E.U./dL (0.2 - 1.0)
[2018-01-28 08:27] LABS: URINE CLARITY CLEAR (CLEAR); URINE COLOR YELLOW; URINE MICROSCOPIC INDICATED? YES
[2018-01-28 08:28] LABS: URINE BACTERIA NONE SEEN /hpf (NONE SEEN); URINE EPITHELIAL CELLS RARE /lpf (FEW); URINE RBC NONE SEEN /hpf (0-5); URINE WBC 0-2 /hpf (0-5)
[2018-01-28 08:35] LABS: AMPHETAMINE URINE NEGATIVE (NEGATIVE); BARBITURATES URINE NEGATIVE (NEGATIVE); BENZODIAZEPINES QUAL URINE NEGATIVE (NEGATIVE); CANNABINOID THC POSITIVE (NEGATIVE); COCAINE METABOLITE QUAL URINE NEGATIVE (NEGATIVE); METHADONE URINE NEGATIVE (NEGATIVE); METHAMPHETAMINES QUAL URINE NEGATIVE (NEGATIVE); OPIATES (MORPHINE) QUAL. URINE NEGATIVE (NEGATIVE); PHENCYCLIDINE (PCP) URINE NEGATIVE (NEGATIVE); TRICYCLICS (TCA) QUAL. URINE POSITIVE (NEGATIVE)
== END 2018-01-28 08:50 | disposition left against medical advice (07) ==
LOC: ER 07:02
DX: R10.13 Epigastric pain (principal); R11.2 Nausea with vomiting, unspecified; R19.7 Diarrhea, unspecified; I10 Essential (primary) hypertension; I25.10 Atherosclerotic heart disease of native coronary artery without angina pectoris; F17.200 Nicotine dependence, unspecified, uncomplicated; Z95.0 Presence of cardiac pacemaker; Z88.0 Allergy status to penicillin; Z88.1 Allergy status to other antibiotic agents; Z88.8 Allergy status to other drugs, medicaments and biological substances
CPT/HCPCS: 99285; 93005; 84484; 36415; 80307; 85025; 85610; 85730; 81001; 80320; 82150; 83690; 80053; 87040 ×2; Q0162